=== PATIENT | female | born 1945 | race Caucasian/White ===

== ENCOUNTER 2024-04-23 09:13 | Outpatient (AMB) | payer OTHER, SELFPAY ==
--- NOTE | 2024-04-23 09:18 | A.OFFVIS_ITS ---
Vital Signs 04/23/24 09:33 Height 5 ft 5 in Weight 133 lb BMI 22.1 BP 113/62 Blood Pressure Location Rt brachial Position Sitting Pulse 80 Intake Visit Reasons: Breast Issues Intake Note: Patient is seen in office for evaluation and treatment of breast issues. Pt c/o: had rt br bx at [facility] in March. Diagnosed with breast CA. Scheduled today's appointment to talk about txt options. [employer] Supervisor Required: No Accompanied by: spouse Jaspal Allergies penicillin G Allergy (Mild, Verified 04/23/24 09:24) Rash Medication List - Last Reconciled 04/23/24 by Abdirashid Hudson MD amlodipine mg PO bupropion HCl XL 300 mg PO DAILY denosumab (Prolia) mg subcut lamotrigine 200 mg PO DAILY lisinopril 40 mg PO DAILY rosuvastatin 20 mg PO BEDTIME venlafaxine ER 75 mg PO DAILY HPI Comments Details: 78-year-old female patient presenting to the office following a recent ultrasound-guided core biopsy performed at [facility] on 03/31/2024. She underwent bilateral mammogram on 03/05/2024 followed by diagnostic right mammogram and ultrasound on 03/25/2024. This revealed a 0.6 cm round isodense nodule with partial obscured borders in the superior aspect of the right breast approximately 9 cm from the nipple, 11 o'clock position. This was felt to be suspicious and ultrasound-guided core biopsy recommended (BI-RADS 4). She subsequently underwent ultrasound-guided core biopsy on 03/31/2024. 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 She denies a previous history of breast problems or breast surgery. She denies any breast pain, palpable lump, nipple discharge, skin changes or enlarged lymph nodes. She is 0. Her family history is negative for breast cancer. She presents today to discuss surgical next steps. FOR[facility]LY [facility] Medical History Hammer toe of second toe of right foot Patella fracture Bipolar 1 disorder Surgical History H/O: hysterectomy Family History Father Multiple myeloma Social History Alcohol intake: current Alcohol type: wine Patient Tobacco Use Status: Never used Tobacco Review of Systems Const All systems reviewed & are unremarkable except as noted in HPI and below Denies chills, Denies fever(s), Denies headache(s), Denies poor appetite and Denies weakness ENT Denies headache(s) Card Denies chest pain, Denies irregular heart rhythm, Denies palpitations and Denies dyspnea Resp Denies cough, Denies excessive phlegm production and Denies dyspnea GI Denies abdominal pain, Denies bloating, Denies change in bowel habits, Denies constipation, Denies heartburn, Denies diarrhea, Denies nausea and Denies vomiting Denies urinary frequency and Denies nipple discharge Musc Denies back pain, Denies muscle weakness and Denies numbness Skin/Breast Denies breast skin changes, Denies breast pain, Denies breast mass, Denies changing lesions, Denies nipple discharge, Denies erythema and Denies unusual b ruising Neuro Denies headache(s), Denies numbness, Denies paresthesias and Denies weakness Psych Denies anxiety and Denies depression Endo Denies palpitations Cezar/Lymph Denies lymphadenopathy Physical Exam Vital Signs: Last Vital Signs Pulse 80 04/23/24 09:33 BP 113/62 04/23/24 09:33 BMI result Body Mass Index 22.1 Const General: cooperative and no acute distress Nutritional Appearance: well nourished Orientation/consciousness: patient oriented x3 Limitations: no limitations HEENT Head: Yes normocephalic and Yes atraumatic Ears: hearing grossly normal bilaterally Chest Other: Left breast: No skin change, no nipple retraction, no nipple discharge, no palpable mass, no enlarged lymph nodes. Right breast: No skin change, no nipple retraction, no nipple discharge, no palpable mass, no enlarged lymph nodes Resp Effort & Inspection: normal respiratory effort, no audible wheezes, no cough and no respiratory distress Cardio Jugular venous distension: no JVD GI Inspection: Yes normal to inspection Skin Other: Warm, dry, no rash Neuro General: patient oriented x3 Extrem General: Yes no clubbing, cyanosis or edema Assessment & Plan Assessment & Plan (1) Invasive ductal carcinoma of right breast: Code(s): C50.911 - Malignant neoplasm of unspecified site of right female breast Category: Medical (2) Ductal carcinoma in situ of right breast: Code(s): D05.11 - Intraductal carcinoma in situ of right breast Category: Medical Plan 78-year-old female patient presenting with a recently diagnosed invasive ductal carcinoma of the right breast, 11 o'clock position, 9 cm from the nipple with associated focal ductal carcinoma in-situ. I reviewed the pathology in detail with the patient and recommended a right breast lumpectomy with localizer and right axillary sentinel node biopsy. After discussion of the procedure, risks, and alternatives, she consents to the procedure and will be scheduled at her earliest convenience. Coding Level of Care Code New Pt Level 4 (19507) Diagnoses Invasive ductal carcinoma of right breast C50.911 Ductal carcinoma in situ of right breast D05.11
[2024-04-23 09:33] VITALS: BP 113/62; PULSE 80; BMI 22.1
== END 2024-04-23 09:56 | disposition home or self-care (01) ==
PROVIDERS: PCP Internal Medicine; Visit Provider Surgery
DX: C50.911 Malignant neoplasm of unspecified site of right female breast (principal); D05.11 Intraductal carcinoma in situ of right breast
CPT/HCPCS: 99204

== ENCOUNTER → 2024-04-23 09:13 | Outpatient (BNVA) | payer OTHER, SELFPAY | PROVIDERS: PCP Internal Medicine; Visit Provider Surgery ==

== ENCOUNTER 2024-05-05 09:45 | Outpatient (REF) | payer OTHER, SELFPAY ==
--- NOTE | ~2024-05-05 | US_ITS ---
EXAMINATION: MM ULTRASOUND GUIDED RFID LOCALIZATION BREAST, RIGHT POSTPROCEDURAL RIGHT BREAST DIAGNOSTIC MAMMOGRAM. CLINICAL INFORMATION: Right breast invasive ductal carcinoma 11:00 axis, 9 cm from the nipple. For RFID localization. COMPARISON: None TECHNIQUE NEEDLE LOC: Proper informed consent is obtained from the patient after discussion of the procedure, potential risks and complications, and alternatives including declining the procedure today. Patient was given an opportunity for questions. The patient appeared to understand. The patient consented to the procedure and signed the consent form. GUIDANCE: Ultrasound guidance. APPROACH: Lateral. TARGET: Small 5 mm oval mass with internal biopsy clip 11:00 axis right breast, 9 cm from the nipple. ANESTHESIA: carbonated lidocaine 1%: 2 mL. LOCALIZATION SYSTEM: [employer] LOCallizer Wire-Free Guidance System with 12g needle applicator. RADIOFREQUENCY TAG: ID # [id number] DERMATOTOMY: Single 1 mm skin-leslye dermatotomy performed. RF Tag ID confirmed with LOCalizer Guidance System prior to placement. The skin is prepped and local anesthesia administered. The needle is positioned and RFID tag deployed. Final mammographic CC and ML images demonstrate the LOCalizer RF tag to reside immediately abutting the biopsy clip and small mass. The patient tolerated the procedure well and had no immediate complications. Dressing placed and home instructions reviewed. US/US breast needle loc RT IMPRESSION: -Status post right breast ultrasound-guided RFID localization with mammographic confirmation images . -Please refer to the final CC and ML images for OR reference, which are appropriately labeled. Electronically signed by: Cole White MD 05/05/2024 01:15 PM EDT
--- NOTE | ~2024-05-05 | MM_ITS ---
EXAMINATION: MM ULTRASOUND GUIDED RFID LOCALIZATION BREAST, RIGHT POSTPROCEDURAL RIGHT BREAST DIAGNOSTIC MAMMOGRAM. CLINICAL INFORMATION: Right breast invasive ductal carcinoma 11:00 axis, 9 cm from the nipple. For RFID localization. COMPARISON: None TECHNIQUE NEEDLE LOC: Proper informed consent is obtained from the patient after discussion of the procedure, potential risks and complications, and alternatives including declining the procedure today. Patient was given an opportunity for questions. The patient appeared to understand. The patient consented to the procedure and signed the consent form. GUIDANCE: Ultrasound guidance. APPROACH: Lateral. TARGET: Small 5 mm oval mass with internal biopsy clip 11:00 axis right breast, 9 cm from the nipple. ANESTHESIA: carbonated lidocaine 1%: 2 mL. LOCALIZATION SYSTEM: [email or web address] LOCallizer Wire-Free Guidance System with 12g needle applicator. RADIOFREQUENCY TAG: ID # [id number] DERMATOTOMY: Single 1 mm skin-leslye dermatotomy performed. RF Tag ID confirmed with LOCalizer Guidance System prior to placement. The skin is prepped and local anesthesia administered. The needle is positioned and RFID tag deployed. Final mammographic CC and ML images demonstrate the LOCalizer RF tag to reside immediately abutting the biopsy clip and small mass. The patient tolerated the procedure well and had no immediate complications. Dressing placed and home instructions reviewed. MM/MM tomosynthesis diagnostic RT IMPRESSION: -Status post right breast ultrasound-guided RFID localization with mammographic confirmation images . -Please refer to the final CC and ML images for OR reference, which are appropriately labeled. Electronically signed by: Cole White MD 05/05/2024 01:15 PM EDT
[2024-05-05] MEDS: Sodium Bicarbonate 8.4% 50 MEQ/50 ML VIAL SUBCUT (10:56)
[2024-05-05] MEDS: Lidocaine HCl 1 % 20 ML VIAL 8 ML SUBCUT (10:58)
== END 2024-05-05 09:46 | disposition home or self-care (01) ==
LOC: HO.MAMMO 09:45
PROVIDERS: Visit Provider Surgery
DX: C50.411 Malignant neoplasm of upper-outer quadrant of right female breast (principal)
CPT/HCPCS: 19285; 77061; 77065; C1819

== ENCOUNTER → 2024-05-05 10:10 | Outpatient (BNV) | payer OTHER, SELFPAY | PROVIDERS: Visit Provider Radiology Diagnostic Radiology | DX: C50.511 Malignant neoplasm of lower-outer quadrant of right female breast (principal) | CPT/HCPCS: 19285; 77065 ==

== ENCOUNTER 2024-06-10 06:05 | Day surgery (SDC) | payer MEDICARE, SELFPAY ==
[2024-05-26 12:57] VITALS: BP 131/60; PULSE 84; RESP 20; O2SAT 95; BMI 21.6
--- NOTE | 2024-05-26 13:09 | P.CONAN_ITS ---
Documented by User: Coty Simpson NP 05/27/24 13:15 HPI - Anesthesia Eval Consult details Narrative: 78yo F for Right Breast Lumpectomy w/LOCalizer, [place] Node Biopsy Medically optimized per PCP No recent illness No CP/SOB with walking for exercise PMFSH Active Problems Active Problems: All Active Problems Ductal carcinoma in situ of right breast (Acute) Invasive ductal carcinoma of right breast (Acute) Past Medical History Medical History (Updated 05/26/24 @ 12:53 by Carol Eduardo RN) Basal cell carcinoma Arthritis HTN (hypertension) Osteoporosis Closed fracture of thoracic vertebra Chronic renal insufficiency Depression Hammer toe of second toe of right foot Patella fracture Bipolar 1 disorder Family History Family History Father Multiple myeloma Family history of problems with anesthesia: No Surgical History Surgical History (Updated 05/26/24 @ 12:54 by Carol Eduardo RN) H/O colonoscopy Hx of vertebroplasty History of rectal surgery Hx of foot surgery History of amputation of toe Hx of knee surgery H/O: hysterectomy History of Problems with Anesthesia: No Social History Social History Are you a primary direct care professional to a significant other at home: No Do you presently have visiting nurse or other home services: No Alcohol intake: current Alcohol type: wine Patient Tobacco Use Status: Former Tobacco user Tobacco use type: Cigarette Years Smoked: 57 Use of substances other than those prescribed or required for medical reasons: Yes Substance Use Type Other:: edibles Have you been hit, kicked, punched, or otherwise hurt by someone within the past year? If so, by whom?: No Spiritual Healthcare Practices: none Pent[employer]ism Healthcare Practices: [facility] [place] Cultural Healthcare Practices: none Are you DNR?: No Advance Directives Information Provided: Yes (as above noted) Advance Directives on File: No Recently lost weight without trying: No Eating poorly because of decreased appetite: No Nutrition Risks: Surgical patient >75years FDLMP: n/a Poor oral hygiene: No (upper partial) Meds Allergies Allergy/AdvReac Type Severity Reaction Status Date / Time penicillin G Allergy Mild Rash Verified 04/23/24 09:24 Home Medications ?Medication ?Instructions ?Recorded ?Confirmed ?Last Taken ?Type amlodipine 5 mg tablet 5 mg PO QAM 04/23/24 05/26/24 06/10/24 History bupropion HCl 300 mg 24 hr tablet, 300 mg PO BEDTIME 04/23/24 05/26/24 Unknown History extended release denosumab 60 mg/mL subcutaneous 60 mg subcut [id number] 04/23/24 05/26/24 Unknown History syringe (Prolia) lamotrigine 200 mg tablet 200 mg PO QAM 04/23/24 05/26/24 06/10/24 History lisinopril 40 mg tablet 40 mg PO QAM 04/23/24 05/26/24 Unknown History rosuvastatin 20 mg tablet 20 mg PO BEDTIME 04/23/24 05/26/24 Unknown History venlafaxine 75 mg capsule,extended 75 mg PO BEDTIME 04/23/24 05/26/24 Unknown History release 24 hr aspirin 81 mg tablet,delayed 81 mg PO DAILY 06/10/24 06/10/24 06/07/24 History release Exam Height,Weight and Vital Signs: Height 5 ft 5 in Weight 58.967 kg Last Vital Signs Pulse 84 05/26/24 12:57 Resp 20 05/26/24 12:57 BP 131/60 05/26/24 12:57 Pulse Ox 95 05/26/24 12:57 O2 Del Method Room Air 05/26/24 12:57 Pertinent Lab Results Pertinent Lab Results: CBC and CMP 04/2024 from outside facility WNL Airway Mallampati Class: II TM Dist: <=3cm Neck ROM: Full Partial: Upper Heart: RRR Lungs: CTAB Assessment and Plan Assessment Anesthesia Assessment: Anesthesia Plan Discussed and PAT Visit Final Anesthetic Review Family History of Problems with Anesthesia: No History of Problems with Anesthesia: No Final Preanesthetic Review: No Changes in Pt Med Stat Documented by User: Silvia Ghosh MD 06/10/24 10:25 [facility] Past Medical History Medical History (Updated 05/26/24 @ 12:53 by Carol Eduardo RN) Basal cell carcinoma Arthritis HTN (hypertension) Osteoporosis Closed fracture of thoracic vertebra Chronic renal insufficiency Depression Hammer toe of second toe of right foot Patella fracture Bipolar 1 disorder Family History Family History Father Multiple myeloma Surgical History Surgical History (Updated 05/26/24 @ 12:54 by Carol Eduardo RN) H/O colonoscopy Hx of vertebroplasty History of rectal surgery Hx of foot surgery History of amputation of toe Hx of knee surgery H/O: hysterectomy Social History Social History Are you a primary direct care professional to a significant other at home: No Do you presently have visiting nurse or other home services: No Alcohol intake: current Alcohol type: wine Patient Tobacco Use Status: Former Tobacco user Tobacco use type: Cigarette Years Smoked: 57 Use of substances other than those prescribed or required for medical reasons: Yes Substance Use Type Other:: edibles Have you been hit, kicked, punched, or otherwise hurt by someone within the past year? If so, by whom?: No Spiritual Healthcare Practices: none Pent[employer]alism Healthcare Practices: [facility] Cultural Healthcare Practices: none Are you DNR?: No Advance Directives Information Provided: Yes (as above noted) Advance Directives on File: No Recently lost weight without trying: No Eating poorly because of decreased appetite: No Nutrition Risks: Surgical patient >75years FDLMP: n/a Poor oral hygiene: No (upper partial) Meds Allergies Allergy/AdvReac Type Severity Reaction Status Date / Time penicillin G Allergy Mild Rash Verified 04/23/24 09:24 Home Medications ?Medication ?Instructions ?Recorded ?Confirmed ?Last Taken ?Type amlodipine 5 mg tablet 5 mg PO QAM 04/23/24 05/26/24 06/10/24 History bupropion HCl 300 mg 24 hr tablet, 300 mg PO BEDTIME 04/23/24 05/26/24 Unknown History extended release denosumab 60 mg/mL subcutaneous 60 mg subcut [id number] 04/23/24 05/26/24 Unknown History syringe (Prolia) lamotrigine 200 mg tablet 200 mg PO QAM 04/23/24 05/26/24 06/10/24 History lisinopril 40 mg tablet 40 mg PO QAM 04/23/24 05/26/24 Unknown History rosuvastatin 20 mg tablet 20 mg PO BEDTIME 04/23/24 05/26/24 Unknown History venlafaxine 75 mg capsule,extended 75 mg PO BEDTIME 04/23/24 05/26/24 Unknown History release 24 hr aspirin 81 mg tablet,delayed 81 mg PO DAILY 06/10/24 06/10/24 06/07/24 History release Assessment and Plan Final Anesthetic Review NPO: Yes ASA Class: II Final Preanesthetic Review: Meds/Allgs Chart Reviewed and Consent Obtained/Reviewed Patient Risk: Low Procedure Risk: Low Anesthetic Plan Anesthetic Plan: GA Disposition: Standard PACU
[2024-06-10] VITALS (14 sets, daily range): BP systolic 119–139; BP diastolic 62–74; PULSE 77–86; RESP 11–20; TEMP 37.1–37.2; O2SAT 92–95; BMI 20.8
--- NOTE | ~2024-06-10 | NM_ITS ---
EXAMINATION: NM LYMPHOSCINTIGRAPHY CLINICAL INFORMATION: Right breast invasive ductal carcinoma 11:00 axis, 9 cm from the nipple. For sentinel node. COMPARISON: 05/05/2024 mammography and right breast needle localization. Right breast biopsy 03/31/2024 ([facility]), bilateral mammography 03/05/2024, right diagnostic mammography and ultrasound 03/25/2024 ([facility]). TECHNIQUE: Right breast lymphoscintigraphy injection was performed . Approximately 0.5 mCi of technetium 99m lymphoseek and 0.8 mL of saline was divided into 4 aliquots of approximately 0.125 mCi, and injected in 4 quadrants around the right breast areola intradermally at 12:00, 3:00, 6:00, and 9:00. Immediate images and delayed images were obtained in AP, oblique and lateral views 30 minutes later. FINDINGS: There is isotope activity in four-quadrant around right breast areola immediately following injection. At 30 minute images, are at least 3 areas , and likely more small foci of isotope activity along the right mid axilla extending into the right subpectoral region, suggestive of multiple lymph nodes. NM/NM sentinel node w imaging IMPRESSION: At least 3 small lymph nodes seen in right axilla and subpectoral region on right breast lymphoscintigraphy. Thank you for the courtesy of your referral. Electronically signed by: Cole White MD 06/10/2024 12:30 PM EDT
--- NOTE | ~2024-06-10 | MM_ITS ---
EXAMINATION: MM SPECIMEN X-RAY BREAST, RIGHT BREAST CLINICAL INDICATION: Right breast invasive ductal carcinoma 11:00 axis, 9 cm from the nipple. COMPARISON: 05/05/2024 mammography and right breast needle localization. Right breast biopsy 03/31/2024 ([facility]), bilateral mammography 03/05/2024, right diagnostic mammography and ultrasound 03/25/2024 ([facility]). TECHNIQUE: Single radiograph of the excised breast tissue is performed using digital mammography. FINDINGS: The specimen shows the waning shaped biopsy clip, RF ID tags, and a portion of the irregular mass contained within the specimen. The mass appears to extend to the superior margin of the specimen. Dr. Hudson made aware, who is taking additional tissue from the superior aspect. Results were called to in the operating room at the time of imaging. Electronically signed by: Cole White MD 06/10/2024 05:48 PM EDT
[2024-06-10] MEDS: Lidocaine HCl 4 % Topical 50 ML SOLUTION 1 APPL TOPICAL (06:45)
[2024-06-10] MEDS: Lactated Ringers 1,000 ML 100 ML IVCONT (06:54)
--- NOTE | 2024-06-10 10:13 | MHC.SHP ---
Pre-Procedural Eval Section A - 24 Hr Update-Section A only Date of Service: 06/10/24 The patient is an INPATIENT: No Changes since office visit: Yes Patient answered all questions; No Cold of Flu in the past 2 weeks, No New Medical Problems and No Changes in Medication The patient has been examined within 24 hours of the surgical procedure. The History & Physical has been completed within 30 days and I have reviewed it.: No Section B - Complete if H&P > 30 days Chief Complaint: Intraductal carcinoma in situ of right breast Details of Present Illness: No changes since the patient's previous visit. Relevant Family History (Specify if Yes): No Relevant Social History: None Present Medications: see Short Stay Collaborative assessment Medical History: No relevant PMH History of Previous Operations: No relevant previous surgery Allergies: Allergies Allergy/AdvReac Type Severity Reaction Status Date / Time penicillin G Allergy Mild Rash Verified 04/23/24 09:24 Review of Systems Sugical H&P ROS: Negative: Constitution, Cardiovascular, Respiratory, Gastrointestinal and Integumentary Exam Surgical H&P Exam: Normal: Heart, Normal: Lungs, Normal: Extremities and Normal: Skin Plan Diagnosis/Plan: Unchanged I have reviewed the history and physical and performed a pertinent physical examination on my patient. No changes have occurred unless specified. Time Spent With Patient Time: Total time managing care of this patient today ____ minutes.
--- NOTE | 2024-06-10 11:58 | W.PM.OPN ---
Operative Note Operative Note Date of Service: 06/10/24 Narrative: Preoperative diagnosis: Invasive ductal carcinoma right breast Postoperative diagnosis: Same Procedure: Right breast lumpectomy with localizer, right axillary sentinel node biopsy Surgeon: Abdirashid Hudson MD [employer] Teacher: Monique Barriga PA-C Anesthesia: General LMA Indications for procedure: 78-year-old female patient found to have a density on mammogram and ultrasound status post ultrasound-guided core biopsy which revealed invasive ductal carcinoma. She presents today for lumpectomy with localizer and right axillary sentinel node biopsy. Operative findings: Marking clip and localizer found within specimen x-ray. Specimen: Right breast lumpectomy, anterior superior margin, sentinel node 1, 2, and 3 Estimated blood loss: 5 mL Complications: None Procedure details: Patient was brought to the OR placed in a supine position. After administering general anesthesia the patient's right breast and axilla were prepped with ChloraPrep and draped in a sterile fashion. A surgical time-out was called the consent confirmed. Patient received preoperative antibiotics and Venodyne boots were in place. Local anesthesia was infiltrated over the localizer clip in the upper outer quadrant. Using the localizer scanner the area of activity was identified. A curvilinear incision was made directly over the clip. Superior and inferior skin flaps were then created. A core of tissue surrounding the localizing clip was then obtained. Beginning in the inferior margin and continuing in the lateral, superior and medial margins. The specimen was then dissected off the chest wall down to pectoralis muscle. Hemostasis was assured using electrocautery. Cavity of the excision site was marked with hemoclips. Specimen was removed and a specimen x-ray performed. This confirmed the marking clip and localizer clip within the specimen. This was sent to pathology for further examination. The superior anterior margin was determined to be closed therefore a wider excision was performed of this margin. This was also sent to pathology for further examination. Attention was then directed to the axilla which was approached through the same incision. Using the gamma probe area of activity was identified in the superficial axilla. This was grasped with a Allis clamp and dissected free from the surrounding axillary tissue. This had a proximally 1200 counts and was labeled sentinel node 1. Additional nodes were identified with radio activity and were sent separately as sentinel node 2. And 3. No additional axillary nodes were identified the radio activity. No palpable axillary nodes were identified. Wounds were then irrigated with saline and suctioned dry. Hemostasis was assured using electrocautery. Deep breast tissue and clavipectoral fascia was then closed using interrupted 3-0 Polysorb sutures. Superficial breast tissue and dermis were reapproximated using interrupted 3-0 Polysorb sutures. Skin was then closed using a running subcuticular 4-0 Polysorb suture. Steri-Strips, 4 x 4 gauze and Tegaderm were then applied. The patient tolerated the procedure well. Sponge, instrument, and needle counts were reported as correct. The patient was transferred to PACU in stable condition. Breast [place] Node Biopsy Substrate(s) used for sentinel node biopsy in the non-neoadjuvant setting: Radiotracer Substrate(s) used for sentinel node biopsy in the neoadjuvant setting: N/A All colored nodes or non-colored nodes present at the end of a dye filled lymphatic channel were removed, if dye was used as the substrate for localization: N/A All significantly radioactive nodes were removed, if radionuclide was used as the substrate for localization: Yes All palpably suspicious nodes were removed, if present: Yes If clips were placed in pathology-involved nodes, those nodes were identified and removed: N/A Procedure performed with curative intent?: Yes General Surg. - Synoptic Notes Breast [place] Node Biopsy Substrate(s) used for sentinel node biopsy in the non-neoadjuvant setting: Radiotracer Substrate(s) used for sentinel node biopsy in the neoadjuvant setting: N/A All colored nodes or non-colored nodes present at the end of a dye filled lymphatic channel were removed, if dye was used as the substrate for localization: N/A All significantly radioactive nodes were removed, if radionuclide was used as the substrate for localization: Yes All palpably suspicious nodes were removed, if present: Yes If clips were placed in pathology-involved nodes, those nodes were identified and removed: N/A Procedure performed with curative intent?: Yes
[2024-06-10] MEDS: fentaNYL citrate/PF 100 MCG/2 ML VIAL 25 MCG IVPUSH ×4 (12:58→13:21)
[2024-06-10] MEDS: Acetaminophen 325 MG TABLET 650 MG PO (13:53)
[2024-06-10] MEDS: oxyCODONE HCl Immed Release 5 MG TABLET PO (13:54)
== END 2024-06-10 14:37 | disposition home or self-care (01) ==
PROVIDERS: Visit Provider Surgery
PROC: (CPT 19301; principal; 2024-06-10 10:30)
PROC: (CPT 19301; 2024-06-10 10:30)
DX: C50.411 Malignant neoplasm of upper-outer quadrant of right female breast (principal); Z17.0 Estrogen receptor positive status [ER+]; Z17.21 Progesterone receptor positive status; Z17.32 Human epidermal growth factor receptor 2 negative status; I12.9 Hypertensive chronic kidney disease with stage 1 through stage 4 chronic kidney disease, or unspecified chronic kidney disease; N18.2 Chronic kidney disease, stage 2 (mild); E78.2 Mixed hyperlipidemia; E55.9 Vitamin D deficiency, unspecified; M81.0 Age-related osteoporosis without current pathological fracture; F31.9 Bipolar disorder, unspecified; Z79.52 Long term (current) use of systemic steroids; Z79.899 Other long term (current) drug therapy; Z88.0 Allergy status to penicillin; Z98.890 Other specified postprocedural states; Z87.891 Personal history of nicotine dependence; Z89.422 Acquired absence of other left toe(s)
CPT/HCPCS: 19301; 38525; 38900; 78195; 88307; 88329; 88342; 88360; A9520; C1889; J1100; J2003; J2250; J2405; J2704; J2795; J3010; J3370

== ENCOUNTER → 2024-06-10 06:05 | Outpatient (BNV) | payer MEDICARE, SELFPAY | PROVIDERS: Visit Provider Surgery | DX: C50.411 Malignant neoplasm of upper-outer quadrant of right female breast (principal) | CPT/HCPCS: 19301; 38525; 38900 ==

== ENCOUNTER → 2024-06-10 07:46 | Outpatient (BNV) | payer MEDICARE, SELFPAY | PROVIDERS: Visit Provider Radiology Diagnostic Radiology | DX: C50.911 Malignant neoplasm of unspecified site of right female breast (principal) | CPT/HCPCS: 78195 ==

== ENCOUNTER 2024-06-19 11:15 | Outpatient (AMB) | payer OTHER, SELFPAY ==
--- NOTE | 2024-06-19 11:17 | MHC.OFFVIS ---
Vital Signs 06/19/24 11:22 Height 5 ft 5 in Weight 124 lb 12.506 oz BMI 20.8 Respiration 16 Pulse 80 Intake Visit Reasons: S/P Rt brst lumpectomy w/localizer & Rt SN bx Intake Note: Patient is seen in office for post op assessment post Right breast lumpectomy with localizer, right axillary sentinel node biopsy. 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 on 03/31/2024. She underwent bilateral mammogram on 03/05/2024 followed by diagnostic right mammogram and ultrasound on 03/25/2024. This revealed a 0.6 cm round isodense nodule with partial obscured borders in the superior aspect of the right breast approximately 9 cm from the nipple, 11 o'clock position. This was felt to be suspicious and ultrasound-guided core biopsy recommended (BI-RADS 4). She subsequently underwent ultrasound-guided core biopsy on 03/31/2024. 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 She denies a previous history of breast problems or breast surgery. She denies any breast pain, palpable lump, nipple discharge, skin changes or enlarged lymph nodes. She is 0. Her family history is negative for breast cancer. She presents today to discuss surgical next steps. She underwent right breast lumpectomy with localizer and right axillary sentinel node biopsy on 06/10/2024. Pathology confirmed invasive ductal carcinoma with DCIS, negative margins, 0 of 6 sentinel lymph nodes with metastatic disease, ER/TX positive, HER2 Chelsy negative, Ki-67 high (pT1b pN0). She tolerated the procedure well but does have some soreness in the right axilla. [facility] Medical History Basal cell carcinoma Arthritis HTN (hypertension) Osteoporosis Closed fracture of thoracic vertebra Chronic renal insufficiency Depression Hammer toe of second toe of right foot Patella fracture Bipolar 1 disorder Surgical History Status post right breast lumpectomy (06/10/24) H/O colonoscopy Hx of vertebroplasty History of rectal surgery Hx of foot surgery History of amputation of toe Hx of knee surgery H/O: hysterectomy Family History Father Multiple myeloma Social History Are you a primary physician locums urgent care to a significant other at home: No Do you presently have visiting nurse or other home services: No Alcohol intake: current Alcohol type: wine Patient Tobacco Use Status: Former Tobacco user Tobacco use type: Cigarette Years Smoked: 57 Physical Exam Vital Signs: Last Vital Signs Pulse 80 06/19/24 11:22 Resp 16 06/19/24 11:22 BMI result Body Mass Index 20.8 Const General: no acute distress Nutritional Appearance: well nourished Chest Other: Incision in the upper outer quadrant right breast is clean, dry, and intact with intact Steri-Strips. There is a small underlying hematoma but no erythema. Wounds are healing nicely. Resp Effort & Inspection: normal respiratory effort Skin Other: Warm, dry, no rash Assessment & Plan Assessment & Plan (1) Invasive ductal carcinoma of right breast: Code(s): C50.911 - Malignant neoplasm of unspecified site of right female breast Category: Medical (2) Ductal carcinoma in situ of right breast: Code(s): D05.11 - Intraductal carcinoma in situ of right breast Category: Medical Plan 78-year-old female patient status post right breast lumpectomy with sentinel node biopsy for invasive ductal carcinoma with DCIS. I reviewed the pathology in detail with the patient and her . I recommended further evaluation by Medical Oncology. Patient expressed understanding and agrees with the plan. She will follow-up in 1 month for wound check, sooner p.r.n.. Orders: Referrals Hematology & Oncology Referral C50.911 - Malignant neoplasm of unspecified site of right female breast, D05.11 - Intraductal carcinoma in situ of right breast Coding Level of Care Code Global (53012) Diagnoses Invasive ductal carcinoma of right breast C50.911 Ductal carcinoma in situ of right breast D05.11
[2024-06-19 11:22] VITALS: PULSE 80; RESP 16; BMI 20.8
== END 2024-06-19 11:32 | disposition home or self-care (01) ==
PROVIDERS: PCP Internal Medicine; Visit Provider Surgery
DX: C50.911 Malignant neoplasm of unspecified site of right female breast (principal); D05.11 Intraductal carcinoma in situ of right breast
CPT/HCPCS: 99024

== ENCOUNTER → 2024-06-19 11:15 | Outpatient (BNVA) | payer OTHER, SELFPAY | PROVIDERS: PCP Internal Medicine; Visit Provider Surgery ==

== ENCOUNTER → 2024-06-30 13:00 | Outpatient (BNV) | payer OTHER, SELFPAY | PROVIDERS: PCP Internal Medicine; Referring Provider Surgery; Visit Provider Internal Medicine Medical Oncology | DX: D05.11 Intraductal carcinoma in situ of right breast (principal) | CPT/HCPCS: 99204; 99213 ==

== ENCOUNTER 2024-07-06 10:31 | Outpatient (REF) | payer OTHER, SELFPAY ==
--- NOTE | ~2024-07-06 | MM_ITS ---
EXAMINATION: BONE DENSITOMETRY CLINICAL INDICATION: History of osteopenia/osteoporosis. COMPARISON: This is the patient's baseline examination. TECHNIQUE: Using a [employer] DXA System (software version: 13.1) manufactured by [employer], dual-energy x-ray absorptiometry was performed of the lumbar spine and left hip. The images are of good technical quality. Summary results are attached. FINDINGS: LEFT FEMUR, NECK: BMD 0.754 g/cm2, Z-score 0.3, T-score -2.0, osteopenia. LEFT FEMUR, TOTAL: BMD 0.845 g/cm2, Z-score 1.0, T-score -1.3, osteopenia. AP SPINE L1-L2 (excluding L3 and L4): The data of L1-L4 has been changed to exclude the L3 and L4 vertebral bodies, because significant degenerative change at these levels may cause overestimation of lumbar spine density. BMD 0.881 g/cm2, Z-score -0.2, T-score -2.4, osteopenia. IDENTIFIED RISK FACTORS: Menopause, hysterectomy, bilateral oophorectomy, history of fracture (adult), osteoporosis. HISTORY OF FRACTURE: Other. MEDICATIONS: Calcium supplements or multivitamin, vitamin D, Prolia. MM/XR DEXA axial skeleton IMPRESSION: 1. DIAGNOSIS: Osteopenia based on the lowest T-score value of -2.4 in the lumbar spine applying World Health Organization criteria. 2. 10-YEAR FRACTURE RISK PREDICTION, FRAX: Not performed in this patient on estrogen or bone building treatments. 3. Treatment Recommendations: NOF guidelines recommend consideration for treatment in postmenopausal women and men age 50 and older presenting with the following: -A hip or vertebral (clinical or morphometric) fracture. -T-score less than or equal to -2.5 at the femoral neck or spine after appropriate evaluation to exclude secondary causes. -Low bone mass at the hip or spine and a 10-year fracture probability by FRAX of greater than or equal to 3% for hip fracture or greater than or equal to 20% for major osteoporotic fracture based on the [place] adapted WHO algorithm. 4. Other Recommendations: All treatment decisions require clinical judgment and consideration of individual patient factors, including patient preferences, comorbidities, previous drug use, risk factors not captured in the FRAX model (e.g. frailty, falls, vitamin D deficiency, increased bone turnover, interval significant decline in bone density) and possible under or overestimation of fracture risk by FRAX. Additional medical evaluation for secondary cause of low bone mineral density may be appropriate. FUTURE SCAN RECOMMENDATION: People with diagnosed cases of osteoporosis or at high risk for fracture should have regular bone mineral density tests. For patients eligible for Medicare, routine testing is allowed once every 2 years. The testing frequency can be increased to one year for patients who have rapidly progressing disease, those who are receiving or discontinuing medical therapy to restore bone mass, or have additional risk factors. Electronically signed by: Karen Hutchinson MD 07/06/2024 12:02 PM ROBBIE RED
== END 2024-07-06 10:32 | disposition home or self-care (01) ==
LOC: HO.MAMMO 10:31
PROVIDERS: PCP Internal Medicine; Visit Provider Internal Medicine Medical Oncology
DX: M81.0 Age-related osteoporosis without current pathological fracture (principal)
CPT/HCPCS: 77080

== ENCOUNTER 2024-07-31 09:36 | Outpatient (AMB) | payer OTHER, SELFPAY ==
--- NOTE | 2024-07-31 09:38 | A.OFFVIS_ITS ---
Vital Signs 3 07/31/24 09:46 Height 5 ft 5 in Weight 123 lb BMI 20.5 BP 156/67 H Blood Pressure Location Lt brachial Position Sitting Pulse 71 Intake Visit Reasons: S/P Rt brst lumpectomy w/localizer & Rt SN bx Intake Note: Patient is seen in office for one month follow up visit, post right breast lumpectomy. Pt c/o:denies any concerns regarding the breast, was Rx Anastrozole has not started taking it yet Yony:07/14/24 mm:05/05/24 Contact Lens Assistant Required: No Welt Stitch Cleaner: Welt Stitch Cleaner Present Accompanied by: Sponsored Dependent Allergies penicillin G Allergy (Mild, Verified 07/31/24 09:46) Rash Medication List - Last Reconciled 07/31/24 by Abdirashid Hudson MD amlodipine 5 mg PO QAM anastrozole (Arimidex) 1 mg PO DAILY aspirin 81 mg PO DAILY bupropion HCl XL 300 mg PO BEDTIME denosumab (Prolia) 60 mg subcut [id number] lamotrigine 200 mg PO QAM lisinopril 40 mg PO QAM rosuvastatin 20 mg PO BEDTIME venlafaxine ER 75 mg PO BEDTIME HPI Comments Details: 78-year-old female patient presenting to the office following a recent ultrasound-guided core biopsy performed at [facility] on 03/31/2024. She underwent bilateral mammogram on 03/05/2024 followed by diagnostic right mammogram and ultrasound on 03/25/2024. This revealed a 0.6 cm round isodense nodule with partial obscured borders in the superior aspect of the right breast approximately 9 cm from the nipple, 11 o'clock position. This was felt to be suspicious and ultrasound-guided core biopsy recommended (BI-RADS 4). She subsequently underwent ultrasound-guided core biopsy on 03/31/2024. 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 She denies a previous history of breast problems or breast surgery. She denies any breast pain, palpable lump, nipple discharge, skin changes or enlarged lymph nodes. She is 0. Her family history is negative for breast cancer. She presents today to discuss surgical next steps. She underwent right breast lumpectomy with localizer and right axillary sentinel node biopsy on 06/10/2024. Pathology confirmed invasive ductal carcinoma with DCIS, negative margins, 0 of 6 sentinel lymph nodes with metastatic disease, ER/MT positive, HER2 Chelsy negative, Ki-67 high (pT1b pN0). She was evaluated by Dr. Bhakta and the decision made to avoid radiation therapy given her age. She was started on anastrozole but has not started medication yet due to her being involved with a Ludi for approximately 2 weeks after which she would start the medication. She feels well and denies any ongoing pain at her incisions. [facility] Medical History Basal cell carcinoma Arthritis HTN (hypertension) Osteoporosis Closed fracture of thoracic vertebra Chronic renal insufficiency Depression Hammer toe of second toe of right foot Patella fracture Bipolar 1 disorder Surgical History Status post right breast lumpectomy (06/10/24) H/O colonoscopy Hx of vertebroplasty History of rectal surgery Hx of foot surgery History of amputation of toe Hx of knee surgery H/O: hysterectomy Family History Father Multiple myeloma Social History Household Members: Spouse Are you a primary resident care aid to a significant other at home: No Do you presently have visiting nurse or other home services: No Alcohol intake: current Alcohol type: wine Patient Tobacco Use Status: Former Tobacco user Tobacco use type: Cigarette Years Smoked: 57 Substance Use Type: Marijuana service: No Current occupational status: retired Review of Systems Const All systems reviewed & are unremarkable except as noted in HPI and below Physical Exam Vital Signs: Last Vital Signs Pulse 71 07/31/24 09:46 BP 156/67 H 07/31/24 09:46 BMI result Body Mass Index 20.5 Const General: no acute distress Nutritional Appearance: well nourished Chest Other: Incision in the upper outer quadrant right breast is clean, dry, and intact without seroma or hematoma. No palpable masses are noted surrounding the wound. No enlarged lymph nodes are appreciated. Chest/axillae images: 2 1. Resp Effort & Inspection: normal respiratory effort Skin Other: Warm, dry, no rash Neuro Other: Mobility Assessment 1. 3 meter assessment time (seconds) 6 2. Gait observations: Normal balance and gait Assessment & Plan Assessment & Plan (1) Invasive ductal carcinoma of right breast: Code(s): C50.911 - Malignant neoplasm of unspecified site of right female breast Category: Medical (2) Ductal carcinoma in situ of right breast: Code(s): D05.11 - Intraductal carcinoma in situ of right breast Category: Medical Plan 78-year-old female patient status post right breast lumpectomy with sentinel node biopsy for invasive ductal carcinoma with DCIS. She has been evaluated by Medical Oncology and started on anastrozole. Examination today reveals no evidence of recurrent disease. Her wounds are healing nicely. I recommended follow-up examination in approximately 6 months. She is welcome to call sooner for any new concerns. She will continue her follow-up with Dr. Bhakta in Medical Oncology. Coding Level of Care Code Global (02148) Diagnoses Invasive ductal carcinoma of right breast C50.911 Ductal carcinoma in situ of right breast D05.11
[2024-07-31 09:46] VITALS: BP 156/67; PULSE 71; BMI 20.5
--- OUTSIDE RECORDS SUMMARY | 2024-08-05 07:03 | XMS_ITS ---
Author Organization Shani Chapman MD Address [address] [id number] Care Team Providers Care Dealer Support Technician Name Role Phone Shani Chapman Primary Care Provider Pari Martinez Unavailable [phone] Allergies Allergen (clinical drug ingredient) Drug/Non Drug Allergy documented on EMR Reaction Allergy Type Onset Date Status penicillin G Penicillin G Sodium rash Drug Allergy Active REASON FOR VISIT AWV Medications Medication SIG (Take, Route, Frequency, Duration) Notes Start Date End Date Status Venlafaxine HCl ER 75 MG TAKE 1 CAPSULE BY MOUTH EVERY DAY WITH FOOD for 30 Activ e amLODIPine Besylate 5 MG TAKE 1 AND 1/2 TABLETS BY MOUTH EVERY DAY for 90 Active buPROPion HCl ER (XL) 300 MG TAKE 1 TABLET BY MOUTH EVERY DAY THE MORNING Orally Once a day for 90 days Active lamoTRIgine 200 MG TAKE 1 TABLET BY GIRISH TH DAILY for 90 Active Lisinopril 40 MG TAKE 1 TABLET BY GIRISH TH ONCE DAILY for 100 Active Rosuvastatin Calcium 20 MG TAKE 1 TABLET BY MOUTH ONCE DAILY for 100 Active Prolia 60 MG/ML 60 mg Subcutaneous E very 26 weeks 05/01/2022 Active Senokot 8.6 MG 2 tablets at bedtime as needed Orally Once a day for 30 day(s) Active Aspirin 81 MG 1 tablet Orally Once a day Active Social History Tobacco Use: Social History Observation Description Date Details (start date - stop date) Former Smoker NA - 11/25/2019 AUDIT-C (Standard) Question Answer Notes Did you have a drink contain ing alcohol in the past year? Yes How often did you have six o r more drinks on one occasion in the past year? Never (0 point) How many drinks did you have on a typical day when you were drinking in the past year? 1 or 2 drinks (0 point) How often did you have a dri nk containing alcohol in the past year? Daily or almost daily (4 points) Points 4 Interpretation Positive Tobacco Control (Standard) Question Answer Notes Tobacco use: Former smoker When did you stop smoking? 11/25/2019 How long has it been since you last smoked? 1-5 years Vital Signs Temperature 96.7 degrees Fahrenheit 07/09/20 24 Heart Rate 82 /min 07/09/2024 Blood pressure systolic 128 mm Hg 07/09/20 24 Blood pressure diastolic 76 mm Hg 024 Weight 129 lbs 07/09/2024 BMI 22.14 kg/m2 07/09/2024 Height 5 ft 4 in in 07/09/2024 Oximetry 98 % 07/09/2024 Encounters Encounter Location Date Provider Diagnosis Shani Chapman MD [address] [id number] 07/09/2024 Pari Martinez Encounter for genera l adult medical examination without abnormal findings Z00.00 ; Hypertensive chronic kidney disease with stage 1 through stage 4 chronic kidney disease, or unspecified chronic kidney disease I12.9 ; Chronic kidney disease, stage 2 (mild) N18.2 ; Mixed hyperlipidemia E78.2 ; Major depressive disorder, recurrent, in partial remission F33.41 ; Malignant neoplasm of unspecified site of unspecified female breast C50.919 ; Age-related osteoporosis without current pathological fracture M81.0 ; Nicotine dependence, cigarettes, in remission F17.211 ; Vitamin D deficiency, unspecified E55.9 ; Encounter for screening for malignant neoplasm of colon Z12.11 ; Encounter for screening mammogram for malignant neoplasm of breast Z12.31 ; Encounter for screening for osteoporosis Z13.820 ; Asymptomatic menopausal state Z78.0 ; Encounter for screening for cardiovascular disorders Z13.6 ; Encounter for immunization Z23 ; Encounter for antibody response examination Z01.84 ; Encounter for screening for other viral diseases Z11.59 and Encounter for screening examination for other mental health and behavioral disorders Z13.39 Assessments Encounter Date Diagnosis (ICD Code) Assessment Notes Treatment Notes Treatment Clinical Notes Section Notes 07/09/2024 Encounter for general adult medical examination without abnormal findings (ICD-10 - Z00.00) General healthcare up-to-date. Will obtain updated routine labs. Healthcare proxy and MOLST form package given for review and completion. Plan will be for annual in 1 year 07/09/2024 Hypertensive chronic kidney disease with stage 1 through stage 4 chronic kidney disease, or unspecified chronic kidney disease (ICD-10 - I12.9) Blood pressure stabl e during today's visit. Patient to remain on current medication regimen 07/09/2024 Chronic kidney disease, stage 2 (mild) (ICD-10 - N18.2) Stable with estimate d GFR in the upper 70s. Continue control of comorbidity of hypertension 07/09/2024 Mixed hyperlipidemia (ICD-10 - E78.2) Will obtain an updated lipid panel to verify by adequate LDL control. Patient to remain on current medication regimen and control of comorbidities of hypertension 07/09/2024 Major depressive disorder, recurrent, in partial remission (ICD-10 - F33.41) Stable at present time and patient to continue working with her behavioral health prescriber as well as continue current medication regimen as prescribed by this provider 07/09/2024 Malignant neoplasm of unspecified site of unspecified female breast (ICD-10 - C50.919) Patient is scheduled to be seen by her breast specialist/oncologist next week to review recent right breast lumpectomy and sentinel node dissection as well as discussed treatment options. 07/09/2024 Age-related osteoporosis without current pathological fracture (ICD-10 - M81.0) Patient recently completed an upper updated DEXA scan which did reveal improvement in bone density and she is now noted to have osteopenia. Patient states she is going to discuss this with her oncologist to determine appropriate treatments, if needed, now that her bone health has improved due to Prolia 07/09/2024 Nicotine dependence, cigarettes, in remission (ICD-10 - F17.211) Remains in remission 07/09/2024 Vitamin D deficiency, unspecified (ICD-10 - E55.9) Will check level as adjunct evaluation for fall risk and possibly dementia 07/09/2024 Encounter for screening for malignant neoplasm of colon (ICD-10 - Z12.11) Up-to-date on colon cancer screenings. Patient states she was advised by her form raiser that she no longer has to complete any further colonoscopies. Last colonoscopy was without significant findings and patient aware that should she have any bowel changes to follow-up with the office independent of her being 78 years old 07/09/2024 Encounter for screening mammogram for malignant neoplasm of breast (ICD-10 - Z12.31) Patient is followed by her breast specialist and oncologist and is up-to-date with breast cancer screenings 07/09/2024 Encounter for screening for osteoporosis (ICD-10 - Z13.820) Up-to-date on osteoporosis screening 07/09/2024 Asymptomatic menopausal state (ICD-10 - Z78.0) See plan above 07/09/2024 Encounter for screening for cardiovascular disorders (ICD-10 - Z13.6) Blood pressure stable. Will check for comorbidity of hyperlipidemia and hyperglycemia and use this data to further assess risk 07/09/2024 Encounter for immunization (ICD-10 - Z23) Vaccines up-to-date 07/09/2024 Encounter for antibody response examination (ICD-10 - Z01.84) Titers have been checked in the past and is immune to rubeola 07/09/2024 Encounter for screening for other viral diseases (ICD-10 - Z11.59) Will screen for hepatitis C as is the general recommendation 07/09/2024 Encounter for screening examination for other mental health and behavioral disorders (ICD-10 - Z13.39) PHQ score reviewed n o further interventions warranted at this time 07/09/2024 Other This note was created with voice dictation recognition software and may contain errors of grammar and syntax. Also labs were reviewed with patient. Plan Of Treatment Pending Test Test Name Order Date CT Low Dose Lung Screening 07/09/2024 Urinalysis, Complete-[id number] 07/09/2024 CBC With Differential/Platelet-[id number] Vitamin D, 27-[id number] 07/09/2024 Comp. Metabolic Panel ([id number] LP+Non-HDL Cholesterol-[id number] 07/09/2024 HCV Antibody-[id number] 07/09/2024 Next Appt Details Follow Up: 3 month f/u, trevor thorne in 1 yeae, Reason: Provider Name:Shani Chapman , 08/27/2024 11:15:00 AM, [address] [place] [address], [address], [place], [place], [phone], Provider Name:Shani Chapman , 08/02/2025 09:00:00 AM, [address] [facility], [address], [place], [place], [phone], Progress Notes * Aminta URBINA WDOB: [birth year] (78 yo F)Acc No.[id number]:07/09/2024 Progress Note Patient:?Aminta URBINA W Appointment Provider:?KYLIE Benjamin :1945???Age:78 Y???Sex:Female S upervising Provider:Pari Martinez DNP Date:07/09/2024 Address:[address] [place], [place] [id number] Pcp:Shani Chapman Subjective: * Chief Complaints: * ???1. AWV. * HPI: ???Medicare Annual Visit:? Patient presents today for her annual wellness visit. Patient states she is up-to-date with her annual dental cleanings and vision exams. ?Type of Visit?-?Subsequent Annual Wellness Visit ?Language or Communication barrier addressed?-?Yes ?Health Risk Assessment?- Do you currently use tobacco products??See Social History ?- How often do you exercise??See Social History ?- In the past two weeks, how often have you felt depressed, down or hopeless??See PHQ2 and PHQ9 ?- How many times have you fallen in your home??Never ?Immunization Status addressed?-?Yes ?Depression Screening?-?PHQ2 done ?Vision Screening?-?Yes, patient sees regular online activist or brine purifier ?Hearing Screening?-?Yes, no gross abnormalities ?Fall Risk and Home Safety?Get Up and Go Evaluation?under 12 seconds ?Medication evaluation and reconcilliation performed?Yes ?Psychosocial Risks?-?No overt psychosocial risks shown, observed, or mentioned ?Behavioral Risks?-?Patient seems very well adjusted and no behavioral issues noted ?Activities of daily living?-?Not impaired ?Cognitive Screening?-?No overt cognitive deficiency is apparent by direct observation ???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 She states she recently underwent right breast lumpectomy and is scheduled to be seeing her specialist next week to discuss if medications are warranted for breast cancer prevention. ???Depression Screening:?PHQ-2 (2015 Edition)?Little interest or pleasure in doing things??Not at all ?Feeling down, depressed, or hopeless??Not at all ?Total Score?0 * ROS:?General/Constitutional:?Denies?Change in appetite.?Denies?Chills.?Denies?Fever.?Denies?Sleep disturbance.?Denies?Weight gain.?Denies?Weight loss.?Respiratory:?Denies?Cough.?Denies?Shortness of breath.?Denies?Shortness of breath with exertion.?Denies?Sputum production.?Denies?Wheezing.?Cardiovascular:?Denies?Chest pain.?Denies?Chest pain with exertion.?Denies?Claudication.?Denies?Dizziness.?Denies?Dyspnea on exertion.?Denies?Irregular heartbeat.?Denies?Palpitations.?Denies?Shortness of breath.?Denies?Weight gain.?Gastrointestinal:?Denies?Dark Stools.?Denies?Abdominal pain.?Denies?Blood in stool.?Denies?Constipation.?Denies?Decreased appetite.?Denies?Heartburn.?Denies?Nausea.?Denies?Rectal bleeding.?Denies?Weight loss.?Hematology:?Denies?Bleeding problems.?Denies?Easy bruising.?Denies?Prolonged bleeding.?Denies?Swollen glands.?Genitourinary:?Denies?Nocturia.?Denies?Blood in urine.?Denies?Difficulty urinating.?Denies?Frequent urination.? * Medical History:?Hammer toes , Malignant neoplasm of uterus, part unspecified, Other cataract, Rib fracture, Major depressive disorder, recurrent, in partial remission, Chronic kidney disease, stage 2 (mild), Age-related osteoporosis without current pathological fracture, Allergy status to penicillin, Personal history of malignant neoplasm of other parts of uterus, Acquired absence of other left toe(s), Vitamin D deficiency, unspecified, Hypertensive chronic kidney disease with stage 1 through stage 4 chronic kidney disease, or unspecified chronic kidney disease, Nicotine dependence, cigarettes, with unspecified nicotine-induced disorders, Rectal prolapse (resolved 10/03/2020), Wedge compression fracture of unspecified thoracic vertebra, initial encounter for closed fracture (resolved 09/18/2022). * Surgical History:?Right Knee Patella Repair 07/19/2015, Amputation of 5th toe 2014, Corrective surgery (hammer toes) 2011, Hysterectomy , Perineal Rectosigmoidectomy (Altemeier Procedure) 05/2020, Hammertoe Correction 10/2020, Vertebra-pasty 06/2022. * Hospitalization/Major Diagno stic Procedure:?Right Patella Fracture 07/18/2015. * Family History:?Father: dece ased, Myeloma at 77.?Mother: , COPD at 89.?Siblings: alive, 1 brother healthy1 sister healthy.?1 brother(s) , 1 sister(s) - healthy. .? (AWV) Family history verified no changes since last visit. * Social History:?Tobacco Use:?Tobacco Control (Standard)?Tobacco use:?Former smoker ?When did you stop smoking??11/25/2019 ?How long has it been since you last smoked??1-5 years ???Drugs/Alcohol:?Drugs?Have you used drugs other than those for medical reasons in the past 12 months??No ?Caffeine?Intake:?2-3 cups per day ?Do you smoke marijuana?: Denies. ?Do you drink alcohol?: Yes, , Daily with dinner. ???Miscellaneous:?Exercise: yes, walking. 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 ???Household:?Household?Marital status:?Drug/Alcohol:?AUDIT-C (Standard)?Did you have a drink containing alcohol in the past year??Yes ?How often did you have six or more drinks on one occasion in the past year??Never (0 point) ?How many drinks did you have on a typical day when you were drinking in the past year??1 or 2 drinks (0 point) ?How often did you have a drink containing alcohol in the past year??Daily or almost daily (4 points) ?Points?4 ?Interpretation?Positive * Medications:?Taking Aspirin 81 MG Tablet Delayed Release 1 tablet Orally Once a day , Taking Senokot 8.6 MG Tablet 2 tablets at bedtime as needed Orally Once a day , Taking Prolia 60 MG/ML Solution Prefilled Syringe 60 mg Subcutaneous Every 26 weeks , Taking Rosuvastatin Calcium 20 MG Tablet TAKE 1 TABLET BY MOUTH ONCE DAILY , Taking buPROPion HCl ER (XL) 300 MG Tablet Extended Release 24 Hour TAKE 1 TABLET BY MOUTH EVERY DAY THE MORNING Orally Once a day , Taking amLODIPine Besylate 5 MG Tablet TAKE 1 AND 1/2 TABLETS BY MOUTH EVERY DAY , Taking Venlafaxine HCl ER 75 MG Capsule Extended Release 24 Hour TAKE 1 CAPSULE BY MOUTH EVERY DAY WITH FOOD , Taking Lisinopril 40 MG Tablet TAKE 1 TABLET BY MOUTH ONCE DAILY , Taking lamoTRIgine 200 MG Tablet TAKE 1 TABLET BY MOUTH DAILY , Discontinued OLANZapine 2.5 MG Tablet Oral PRN , Medication List reviewed and reconciled with the patient * Allergies:?Penicillin G Sodi um: rash - Allergy. Objective: * Vitals:?Temp:96.7F, HR:82/mi n, BP:128/76mm Hg, Wt:129lbs, BMI:22.14Index, Ht:5 ft 4 in, Oxygen sat %:98%. Past Vitals:* 05/13/2024 Temp:96.8F, HR:75/min, BP:Si tting Right Arm: 114/54mm Hg, Wt:131lbs, BMI:22.48Index, Ht:5 ft 4 in, Oxygen sat %:98% * 11/04/2023 BP:Sitting Right Arm: 124/74 mm Hg, Wt:132lbs, BMI:22.66Index, Ht:5 ft 4 in * 07/05/2023 Temp:97.7F, HR:132/82/min, B P:83mm Hg, Wt:135lbs, BMI:23.17Index, Ht:5 ft 4 in, Oxygen sat %:95% * Examination: ???General Examination: ?GENERAL APPEARANCE:?Age appropriate, in no acute distress, well developed, well nourished.?HEAD:?normocephalic, atraumatic.?EYES:?extraocular movement intact (EOMI), sclera non-icteric.?NECK/THYROID:?neck supple, full range of motion, no thyromegaly.?LYMPH NODES:?no cervical adenopathy.?HEART:?regular rate and rhythm, S1, S2 normal.?LUNGS:?clear to auscultation bilaterally.?BACK:?no kyphosis, no scoliosis.?EXTREMITIES:?no clubbing, cyanosis, or edema.?NEUROLOGIC:?nonfocal, alert and oriented, gait normal, motor strength grossly normal upper and lower extremities, no tremor.?PSYCH:?alert, oriented, good eye contact.? Assessment: * Assessment: 1.?Hypertensive chronic kidn ey disease with stage 1 through stage 4 chronic kidney disease, or unspecified chronic kidney disease - I12.9???2.?Encounter for general adult medical examination without abnormal findings - Z00.00 (Primary)???3.?Chronic kidney disease, stage 2 (mild) - N18.2???4.?Mixed hyperlipidemia - E78.2???5.?Major depressive disorder, recurrent, in partial remission - F33.41???6. Malignant neoplasm of unspecified site of unspecified female breast - C50.919???7.?Age- related osteoporosis without current pathological fracture - M81.0???8.?Nicotine dependence, cigarettes, in remission - F17.211???9.?Vitamin D deficiency, unspecified - E55.9???10.?Encounter for screening for malignant neoplasm of colon - Z12.11???11.?Encounter for screening mammogram for malignant neoplasm of breast - Z12.31???12.?Encounter for screening for osteoporosis - Z13.820 ??13.?Asymptomatic menopausal state - Z78.0???14.?Encounter for screening for cardiovascular disorders - Z13.6???15.?Encounter for immunization - Z23???16.?Encounter for antibody response examination - Z01.84?? 17.?Encounter for screening for other viral diseases - Z11.59???18.?Encounter for screening examination for other mental health and behavioral disorders - Z13.39??? Plan: * Treatment: 2.?Hypertensive chronic kidn ey disease with stage 1 through stage 4 chronic kidney disease, or unspecified chronic kidney disease? Clinical Notes: Blood pressure stable during today's visit. Patient to remain on current medication regimen?? 3.?Chronic kidney disease, s tage 2 (mild)? Clinical Notes: Stable with estimated GFR in the upper 70s. Continue control of comorbidity of hypertension?? 4.?Mixed hyperlipidemia?LAB: LP+Non-HDL Cholesterol-[id number] Clinical Notes: Will obtain an updated lipid panel to verify by adequate LDL control. Patient to remain on current medication regimen and control of comorbidities of hypertension?? 5.?Major depressive disorder , recurrent, in partial remission? Clinical Notes: Stable at present time and patient to continue working with her behavioral health prescriber as well as continue current medication regimen as prescribed by this provider?? 6.?Malignant neoplasm of uns pecified site of unspecified female breast? Clinical Notes: Patient is scheduled to be seen by her breast specialist/oncologist next week to review recent right breast lumpectomy and sentinel node dissection as well as discussed treatment options.?? 7.?Age-related osteoporosis without current pathological fracture? Clinical Notes: Patient recently completed an upper updated DEXA scan which did reveal improvement in bone density and she is now noted to have osteopenia. Patient states she is going to discuss this with her oncologist to determine appropriate treatments, if needed, now that her bone health has improved due to Prolia?? 8.?Nicotine dependence, ciga rettes, in remission?Imaging: CT Low Dose Lung Screening Clinical Notes: Remains in remission?? 9.?Vitamin D deficiency, uns pecified?LAB: Vitamin D, 81-[id number] Clinical Notes: Will check level as adjunct evaluation for fall risk and possibly dementia?? 10.?Encounter for screening for malignant neoplasm of colon? Clinical Notes: Up-to-date on colon cancer screenings. Patient states she was advised by her form raiser that she no longer has to complete any further colonoscopies. Last colonoscopy was without significant findings and patient aware that should she have any bowel changes to follow-up with the office independent of her being 78 years old?? 11.?Encounter for screening mammogram for malignant neoplasm of breast? Clinical Notes: Patient is followed by her breast specialist and oncologist and is up-to-date with breast cancer screenings?? 12.?Encounter for screening for osteoporosis? Clinical Notes: Up-to-date on osteoporosis screening?? 13.?Asymptomatic menopausal state? Clinical Notes: See plan above?? 14.?Encounter for screening for cardiovascular disorders? Clinical Notes: Blood pressure stable. Will check for comorbidity of hyperlipidemia and hyperglycemia and use this data to further assess risk?? 15.?Encounter for immunizati on? Clinical Notes: Vaccines up-to-date?? 16.?Encounter for antibody r esponse examination? Clinical Notes: Titers have been checked in the past and is immune to rubeola?? 17.?Encounter for screening for other viral diseases?LAB: HCV Antibody-[id number] Clinical Notes: Will screen for hepatitis C as is the general recommendation?? 18.?Encounter for screening examination for other mental health and behavioral disorders? Clinical Notes: PHQ score reviewed no further interventions warranted at this time?? 19.?Others? Clinical Notes: This note was created with voice dictation recognition software and may contain errors of grammar and syntax. Also labs were reviewed with patient.?? * Procedure Codes:?1123F ACP D ISCUSS/DSCN MKR DOCD, Modifiers: 25 , 1124F ACP DISCUSS-NO DSCNMKR DOCD, Modifiers: 25 * Preventive Medicine:? ??YOUR PREVENTIVE WELLNESS PLAN:?Prenar?The Recommended Frequency is:?1 dose age 65+ ?Breast Cancer Screening (Mammogram):?The Recommended Frequency is:?Every 1 year, age 50-74 (without family history), Every 2 year, age 40-50 (without family history) ?Osteoporosis Screening (Bone Density Measurement):?The Recommended Frequency is:?Routinely, for women ages 65+ ?Colorectal Cancer Screening:?The Recommended Frequency is:?Every 10 years, Colonoscopy, Every 3 years, Cologuard ?Pneumococcal (Pneumonia) Vaccine:?The Recommended Frequency is:?1 dose age 65+ ?Influenza (Flu) Vaccine:?The Recommended Frequency is:?Annually * Follow Up:?3 month f/u, trevor al in 1 yeae * Billing Information: * Visit Code:? G0439 Subsequent Annual Wellness. G0442 Annual Alcohol Misuse Screening, 15 min. Modifiers: G0446 Cardiovascular Screening. Modifiers: 44 Annual Depression Screening, 15 min. Modifiers: 59 * Procedure Codes:? 1123F ACP DISCUSS/DSCN MKR DOCD. Modifiers: 112F ACP DISCUSS-NO DSCNMKR DOCD. Modifiers: 25 Review Notes: Shani Chapman 07/12/2024 06:49:24 AM EST > I was present and available for consultation duringthis visit. I have reviewed the encounter documentation and agree with the documentation provided by Pari Martinez DNP including assessment, treatment plan and discussion.* Sign off status: Completed true * Appointment Provider:?KYLIE Benjamin Date:?07/09/2024 Generated for Davina mckeon/Karla/Edward on:?08/05/2024 07:03 AM EST History and Physical Notes * HPI (History of Present Illness) Category Sub-Category Detail Notes Category Not es Medicare Annual Visit Type of Visit -: Subsequ ent Annual Wellness Visit Language or Communication mariza crum addressed -: Yes Health Risk Assessment - Do you currentl y use tobacco products?: See Social History - How often do you exercise?: See Social History - In the past two weeks, how often have you felt depressed, down or hopeless?: See PHQ2 and PHQ9 - How many times have you fallen in your home?: Never Immunization Status addressed -: Yes Vision Screening -: Yes, patient sees regular online activist or brine purifier Depression Screening -: PHQ2 done Hearing Screening -: Yes, no gross abnormalities Fall Risk and Home Safety Get Up and Go Evaluati on: under 12 seconds Medication evaluation and reconcilliatio n performed: Yes Psychosocial Risks -: No overt psychoso cial risks shown, observed, or mentioned Behavioral Risks -: Patient seems jojo y well adjusted and no behavioral issues noted Activities of daily living -: Not impaired Cognitive Screening -: No overt cognitiv e deficiency is apparent by direct observation Depression Screening PHQ-2 (2015 Edition) Little interest or pleasure in doing things?: Not at all Feeling down, depressed, or hopeless?: N ot at all Total Score: 0 Examination Category Sub-Category Detail Notes Category Not es General Examination GENERAL APPEARANCE: Age appr opriate, in no acute distress, well developed, well nourished HEAD: normocephalic, atrau matic EYES: extraocular movement intact (EOMI), sclera non-icteric NECK/THYROID: neck supple, full ra nge of motion, no thyromegaly HEART: regular rate and rhy thm, S1, S2 normal LUNGS: clear to auscultatio n bilaterally NEUROLOGIC: nonfocal, alert and oriented, gait normal, motor strength grossly normal upper and lower extremities, no tremor EXTREMITIES: no clubbing, cyanosi s, or edema BACK: no kyphosis, no scol iosis LYMPH NODES: no cervical adenopat hy PSYCH: alert, oriented, goo d eye contact
--- OUTSIDE RECORDS SUMMARY | 2024-08-05 07:03 | XMS_ITS ---
Author Organization Shani Chapman MD Address [address] [place] [phone] Care Team Providers Care Merchandise Presentation Associate Name Role Phone Shani Chapman Primary Care Provider REASON FOR VISIT [facility] General Surgery for Beast Cancer Encounters Encounter Location Date Provider Diagnosis Shani Chapman MD [address] [place] [address] [place] [phone] 05/20/2024 Shani Chapman Plan Of Treatment Next Appt Details Provider Name:Shani Chapman , 08/27/2024 11:15:00 AM, [address] [place] [address], [phone], Provider Name:Shani Chapman , 08/02/2025 09:00:00 AM, [address] [place] [address], [phone], Progress Notes * Aminta URBINA WDOB: [birth year] (78 yo F)Acc No.[id number]:05/20/2024 Progress Note Patient:?Aminta URBINA Provider:?Shani Chapman MD :1945???Age:78 Y???Sex:Female D ate:05/20/2024 Address:[address] [place] [id number] Subjective: * Chief Complaints: * ???1. [facility] [place] General Surgery fo r Beast Cancer. * Medical History:? Objective: * Vitals:? Past Vitals:* 05/13/2024 Temp:96.8F, HR:75/min, BP:Si tting Right Arm: 114/54mm Hg, Wt:131lbs, BMI:22.48Index, Ht:5 ft 4 in, Oxygen sat %:98% * 11/04/2023 BP:Sitting Right Arm: 124/74 mm Hg, Wt:132lbs, BMI:22.66Index, Ht:5 ft 4 in * 07/05/2023 Temp:97.7F, HR:132/82/min, B P:83mm Hg, Wt:135lbs, BMI:23.17Index, Ht:5 ft 4 in, Oxygen sat %:95% Assessment: Plan: * Treatment: * Images: Billing Information: * Visit Code:? * Procedure Codes:? * Electronic signature of Viridiana Chapman MD on 08/05/2024 at 07:03 AM EST Sign off status: Pending * Provider:?Shani Chapman MD Date:?05/20 Generated for Davina mckeon/Karla/Heathersmitting on:?08/05/2024 07:03 AM EST
--- OUTSIDE RECORDS SUMMARY | 2024-08-05 07:03 | XMS_ITS | Patient Health Record ---
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 No known palpable abnormalities. COMPARISON: Prior exams back to 10/15/2006. TECHNIQUE: Full-field digital CC and MLO 3D tomosynthesis images of both breasts were acquired. Computer-aided detection (CAD) was utilized in the interpretation of this study. DENSITY: There are scattered areas of fibroglandular density. FINDINGS: Single view nodular asymmetry overlying the pectoralis muscle inferiorly in the right breast. No suspicious findings are seen in the left breast. IMPRESSION: Additional imaging recommended. We will recall the patient. RECOMMENDATION: Diagnostic 3D tomosynthesis of the right breast with scheduled ultrasound Full field digital RIGHT ML and spot compression MLO 3D tomosynthesis images are recommended along with focused breast ultrasound if findings persist. BI-RADS: 0 (Incomplete - Needs additional imaging evaluation. We will recall the patient.) Lay letter mailed to patient WSN: [id number] Ordering Physician: Shani Chapman Dictated By: Gildardo DAMON, Landen Santos PROCEDURE: MM Digita l Mammo Screening INDICATION: Screenin g. No known palpable abnormalities. COMPARISON: Prior ex ams back to 10/15/2006. TECHNIQUE: Full-fiel d digital CC and MLO 3D tomosynthesis images of both breasts were acquired. Computer-aided detection (CAD) was utilized in the interpretation of this study. DENSITY: There are scattered areas of fibroglandular density. FINDINGS: Single vie w nodular asymmetry overlying the pectoralis muscle inferiorly in the ri ght breast. No suspicious findin gs are seen in the left breast. IMPRESSION: Addition al imaging recommended. We will recall the patient. RECOMMENDATION: Diagnostic 3D tomosynthesis of the right breast with scheduled ultrasound Full field digital RIGHT ML and spot compression MLO 3D tomosynthesis images are recommended along wi th focused breast ultrasound if findings persist. BI-RADS: 0 (Incomple te - Needs additional imaging evaluation. We will recall the patient.) Lay letter mailed to patient WSN: [id number] Ordering Physician: Shani Chapman Urinalysis, Complete-[id number] Reviewed date:12/16/2023 08:19:21 AM Interpretation: Performing Lab:[facility], [address] [facility], Phone - [phone], Director - RIWero Notes/Report: Specific Enterprise 1.024 1.005-1.030 pH 7.0 5.0-7.5 Urine-Color Yellow Yellow Appearance Clear Clear WBC Esterase 1+ Negative Protein Trace Negative/Trace Glucose Negative Negative Ketones Negative Negative Occult Blood Negative Negative Bilirubin Negative Negative Urobilinogen,Semi-Qn 0.2 0.2-1.0 mg/dL Nitrite, Urine Negative Negative Microscopic Examination See below: Micr oscopic was indicated and was performed. WBC 11-30 0 - 5 /hpf RBC None seen 0 - 2 /hpf Epithelial Cells (non renal) 0-10 0 - 10 /hpf Casts None seen None seen /lpf Bacteria None seen None seen/Few CBC With Differential/Platel et-[id number] Reviewed date:12/16/2023 08:19:21 AM Interpretation: Performing Lab:[facility], [address] [facility], [place], Phone - [phone], Director - Suzie Notes/Report: WBC 4.8 3.4-10.8 x10E3/uL RBC 3.87 3.77-5.28 x10E6/uL Hemoglobin 12.9 11.1-15.9 g/dL Hematocrit 37.5 34.0-46.6 % MCV 97 79-97 fL MCH 33.3 26.6-33.0 pg MCHC 34.4 31.5-35.7 g/dL RDW 11.9 11.7-15.4 % Platelets 293 150-450 x10E3/uL Neutrophils 54 Not Estab. % Lymphs 31 Not Estab. % Monocytes 15 Not Estab. % Eos 0 Not Estab. % Basos 0 Not Estab. % Neutrophils (Absolute) 2.6 1.4-7.0 x10E3/uL Lymphs (Absolute) 1.5 0.7-3.1 x10E3/uL Monocytes(Absolute) 0.7 0.1-0.9 x10E3/uL Eos (Absolute) 0.0 0.0-0.4 x10E3/uL Baso (Absolute) 0.0 0.0-0.2 x10E3/uL Immature Granulocytes 0 Not Estab. % Immature Grans (Abs) 0.0 0.0-0.1 x10E3/uL Vitamin D, [id number] Reviewed date:12/16/2023 08:19:21 AM Interpretation: Performing Lab:[facility], [address] [place] [address], [place], Phone - [phone], Director - Suzie Notes/Report: Vitamin D, 25-Hydroxy 46.5 30.0-100.0 ng/mL Vitamin D deficiency has been defined by the [place] of [employer] and an Endocrine Society practice guideline as a level of serum 25-OH vitamin D less than 20 ng/mL (1,2). The Endocrine Society went on to further define vitamin D insufficiency as a level between 21 and 29 ng/mL (2). 1. IOM ([place] of [employer]). 2010. Dietary reference intakes for calcium and D. [place]: The National Academies Press. 2. Lizbeth MF, Suzie NC, Adilene BENAVIDEZ, et al. Evaluation, treatment, and prevention of vitamin D deficiency: an Endocrine Society clinical practice guideline. JCEM. 2010; 96(7):1911-30. Albumin/Creatinine Ratio,i ne-[id number] Reviewed date:12/16/2023 08:19:21 AM Interpretation: Performing Lab:[facility] [place], [address] [place] [address], Phone - [phone], Director - MDJodry Notes/Report: Creatinine, Urine 103.0 Not Estab. mg/dL Albumin, Urine 23.5 Not Estab. ug/mL Alb/Creat Ratio 23 0-29 mg/g creat Normal: 0 - 29 Moderately increased: 30 - 300 Severely increased: >300 LP+Non-HDL Cholesterol-[id number] 5 Reviewed date:12/16/2023 08:19:22 AM Interpretation: Performing Lab:[facility] [place], [address] [place] [address], Phone - [phone], Director - MDKalyany Notes/Report: Cholesterol, Total 168 100-199 mg/dL Triglycerides 68 0-149 mg/dL HDL Cholesterol 65 >39 mg/dL VLDL Cholesterol Alfa 13 5-40 mg/dL LDL Chol Calc (NIH) 90 0-99 mg/dL Non-HDL Cholesterol 103 0-129 mg/dL PDF Report Reviewed date:12/16/2023 08:19:22 AM Interpretation: Performing Lab:[facility] [place], [address] [place] [address], Phone - [phone], Director - MDJoy Notes/Report: MM Digital Mammo Unilat Marti yee Reviewed date:03/25/2024 05:14:50 PM Interpretation: Performing Lab: Notes/Report: A D D E N D U M as of: [id number] Right axillary ultrasound is normal WSN: [id number] Ordering Physician: Shani Chapman Dictated By: Ha DAMON, Eben Valadez PROCEDURE: MM Digital Mammo Unilat Right, US Breast Right Limited INDICATION: Callback for single view right breast asymmetry COMPARISON: Multiple prior to the most recent from 03/05/2024 TECHNIQUE: Digital diagnostic mammogram consisting of ML and spot compression MLO views with 3D tomosynthesis and CAD In addition, targeted high-resolution ultrasound of the right breast was performed DENSITY: There are scattered areas of fibroglandular density. FINDINGS: 0.6 cm round isodense nodule with partially obscured borders in the superior aspect of the right breast approximately 9 cm from the nipple. This localizes laterally on the tomographic images. Right breast ultrasound demonstrates a 0.5 cm hypoechoic mass at the 11:00 position 9 cm from the nipple. Mass has slightly irregular borders. It is considered suspicious. It likely corresponds to the mammographic finding IMPRESSION: Mass at the 11:00 position is considered suspicious. Ultrasound-guided biopsy is recommended. RECOMMENDATION: Ultrasound guided core biopsy right breast BI-RADS: 4 (Suspicious) Lay letter mailed to patient WSN: [id number] Ordering Physician: Shani Chapman Dictated By: Eben Bonner MD A Sekou D E N D U Vani as o f: [id number] Right axillary ultrasound is normal WSN: [id number] Ordering Physician: Shani Chapman PROCEDURE: MM Digita l Mammo Unilat Right, US Breast Right Limited INDICATION: Callback for single view right breast asymmetry COMPARISON: Multiple prior to the most recent from 03/05/2024 TECHNIQUE: Digital diagnostic mammogram consisting of ML and spot compression MLO views with 3D tomosynthesis and CAD In addition, targeted high-resolution ultrasound of the ri ght breast was performed DENSITY: There are scattered areas of fibroglandular density. FINDINGS: 0.6 cm round isodens e nodule with partially obscured borders in the superior aspect of the right breast approximately 9 cm from the nipple. This localizes laterally on the tomographic images. Right breast ultraso und demonstrates a 0.5 cm hypoechoic mass at the 11:00 position 9 cm from t he nipple. Mass has slightly irregular borders. It is considered suspiciou s. It likely corresponds to the mammographic finding IMPRESSION: Mass at the 11:00 position is considered suspicious. Ultrasound-guided biopsy is recommended. RECOMMENDATION: Ultrasound guided core biopsy right breast BI-RADS: 4 (Suspicious) Lay letter mailed to patient WSN: [id number] Ordering Physician: Shani Chapman US Breast Right Limited Reviewed date:03/25/2024 05:14:50 PM Interpretation: Performing Lab: Notes/Report: A D D E N D U M as of: [id number] Right axillary ultrasound is normal WSN: [id number] Ordering Physician: Shani Chapman Dictated By: Eben Bonner MD PROCEDURE: MM Digital Mammo Unilat Right, US Breast Right Limited INDICATION: Callback for single view right breast asymmetry COMPARISON: Multiple prior to the most recent from 03/05/2024 TECHNIQUE: Digital diagnostic mammogram consisting of ML and spot compression MLO views with 3D tomosynthesis and CAD In addition, targeted high-resolution ultrasound of the right breast was performed DENSITY: There are scattered areas of fibroglandular density. FINDINGS: 0.6 cm round isodense nodule with partially obscured borders in the superior aspect of the right breast approximately 9 cm from the nipple. This localizes laterally on the tomographic images. Right breast ultrasound demonstrates a 0.5 cm hypoechoic mass at the 11:00 position 9 cm from the nipple. Mass has slightly irregular borders. It is considered suspicious. It likely corresponds to the mammographic finding IMPRESSION: Mass at the 11:00 position is considered suspicious. Ultrasound-guided biopsy is recommended. RECOMMENDATION: Ultrasound guided core biopsy right breast BI-RADS: 4 (Suspicious) Lay letter mailed to patient WSN: [id number] Ordering Physician: Shani Chapman Dictated By: Ha DAMON, Eben Ludwig as o f: [id number] Right axillary ultrasound is normal WSN: [id number] Ordering Physician: Shani Chapman PROCEDURE: MM Digita l Mammo Unilat Right, US Breast Right Limited INDICATION: Callback for single view right breast asymmetry COMPARISON: Multiple prior to the most recent from 03/05/2024 TECHNIQUE: Digital diagnostic mammogram consisting of ML and spot compression MLO views with 3D tomosynthesis and CAD In addition, targeted high-resolution ultrasound of the ri ght breast was performed DENSITY: There are scattered areas of fibroglandular density. FINDINGS: 0.6 cm round isodens e nodule with partially obscured borders in the superior aspect of the right breast approximately 9 cm from the nipple. This localizes laterally on the tomographic images. Right breast ultraso und demonstrates a 0.5 cm hypoechoic mass at the 11:00 position 9 cm from t he nipple. Mass has slightly irregular borders. It is considered suspiciou s. It likely corresponds to the mammographic finding IMPRESSION: Mass at the 11:00 position is considered suspicious. Ultrasound-guided biopsy is recommended. RECOMMENDATION: Ultrasound guided core biopsy right breast BI-RADS: 4 (Suspicious) Lay letter mailed to patient WSN: [id number] Ordering Physician: Shani Chapman Amadeo Screening Digital Reviewed date:04/21/2024 02:58:55 PM Interpretation: Performing Lab: Notes/Report: Urinalysis, Complete-[id number] Reviewed date:05/14/2024 05:06:08 PM Interpretation: Performing Lab:[facility] [place], [address] [facility], Phone - [phone], Director - Suzie Notes/Report: Clinical Information:SRC: Clinical Information:SRC: Specific Enterprise 1.026 1.005-1.030 pH 6.0 5.0-7.5 Urine-Color Yellow Yellow Appearance Clear Clear WBC Esterase Trace Negative Protein Trace Negative/Trace Glucose Negative Negative Ketones Trace Negative Occult Blood Negative Negative Bilirubin Negative Negative Urobilinogen,Semi-Qn 0.2 0.2-1.0 mg/dL Nitrite, Urine Negative Negative Microscopic Examination See below: Micr oscopic was indicated and was performed. WBC 0-5 0 - 5 /hpf RBC None seen 0 - 2 /hpf Epithelial Cells (non renal) 0-10 0 - 10 /hpf Casts None seen None seen /lpf Bacteria None seen None seen/Few CBC With Differential/Platel et-[id number] Reviewed date:05/14/2024 05:06:08 PM Interpretation: Performing Lab:[facility] [place], [address] [facility], Phone - [phone], Director - Suzie Notes/Report: Clinical Information:SRC: WBC 5.0 3.4-10.8 x10E3/uL RBC 3.79 3.77-5.28 x10E6/uL Hemoglobin 12.5 11.1-15.9 g/dL Hematocrit 37.7 34.0-46.6 % MCV 100 79-97 fL MCH 33.0 26.6-33.0 pg MCHC 33.2 31.5-35.7 g/dL RDW 12.0 11.7-15.4 % Platelets 320 150-450 x10E3/uL Neutrophils 45 Not Estab. % Lymphs 38 Not Estab. % Monocytes 15 Not Estab. % Eos 2 Not Estab. % Basos 0 Not Estab. % Neutrophils (Absolute) 2.2 1.4-7.0 x10E3/uL Lymphs (Absolute) 1.9 0.7-3.1 x10E3/uL Monocytes(Absolute) 0.8 0.1-0.9 x10E3/uL Eos (Absolute) 0.1 0.0-0.4 x10E3/uL Baso (Absolute) 0.0 0.0-0.2 x10E3/uL Immature Granulocytes 0 Not Estab. % Immature Grans (Abs) 0.0 0.0-0.1 x10E3/uL Vitamin D, [id number] Reviewed date:05/14/2024 05:06:08 PM Interpretation: Performing Lab:[facility], [address] [place] [address], Phone - [phone], Director - Suzie Notes/Report: Clinical Information:SRC: Vitamin D, 25-Hydroxy 50.8 30.0-100.0 ng/mL Vitamin D deficiency has been defined by the [place] of [employer] and an Endocrine Society practice guideline as a level of serum 25-OH vitamin D less than 20 ng/mL (1,2). The Endocrine Society went on to further define vitamin D insufficiency as a level between 21 and 29 ng/mL (2). 1. IOM ([place] [employer]). 2010. Dietary reference intakes for calcium and D. [place]: The National Academies Press. 2. Lizbeth MF, Suzie NC, Adilene BENAVIDEZ, et al. Evaluation, treatment, and prevention of vitamin D deficiency: an Endocrine Society clinical practice guideline. JCEM. 2010; 96(7):1911-30. Albumin/Creatinine Ratio,Uri [id number] Reviewed date:05/14/2024 05:06:08 PM Interpretation: Performing Lab:[facility], [address] [place] [address], Phone - [phone], Director - Suzie Notes/Report: Clinical Information:SRC: Creatinine, Urine 119.4 Not Estab. mg/dL Albumin, Urine 35.0 Not Estab. ug/mL Alb/Creat Ratio 29 0-29 mg/g creat Normal: 0 - 29 Moderately increased: 30 - 300 Severely increased: >300 Comp. Metabolic Panel (14)-3 [id number] Reviewed date:05/14/2024 05:06:08 PM Interpretation: Performing Lab:[facility], [address] [place] [address], Phone - [phone], Director - Suzie Notes/Report: Clinical Information:SRC: Glucose 111 70-99 mg/dL BUN 17 8-27 mg/dL Creatinine 0.93 0.57-1.00 mg/dL eGFR 62 >59 mL/min/1.73 BUN/Creatinine Ratio 18 12-28 Sodium 141 134-144 mmol/L Potassium 4.1 3.5-5.2 mmol/L Chloride 100 96-106 mmol/L Carbon Dioxide, Total 27 20-29 mmol/L Calcium 9.4 8.7-10.3 mg/dL Protein, Total 7.2 6.0-8.5 g/dL Albumin 4.4 3.8-4.8 g/dL Globulin, Total 2.8 1.5-4.5 g/dL Bilirubin, Total 0.2 0.0-1.2 mg/dL Alkaline Phosphatase 98 44-121 IU/L AST (SGOT) 26 0-40 IU/L ALT (SGPT) 35 0-32 IU/L US Core Biopsy Right Reviewed date:04/07/2024 07:04:13 AM Interpretation: Performing Lab: Notes/Report: PROCEDURE: Incisional core biopsy of the right breast with marker placement and post-procedure mammography. INDICATION: [facility] the 11:00 right breast, 9 cm from the nipple for which biopsy was recommended. TECHNIQUE: The procedure was explained to the patient who signed informed consent. Ultrasound was used to localize the mass prior to biopsy. The skin was cleansed and local anesthetic was administered. A small skin incision was made for access. Using a sterile biopsy tray and a 14-gauge spring-loaded core biopsy device, the needle was inserted and core samples were obtained from the mass. Each specimen was immersed in formalin. After sampling, a wing-shaped metallic tissue marker clip was placed into the region of biopsy with ultrasound guidance. A digital right mammogram taken after the procedure shows successful clip deployment. Compression was held and hemostasis was achieved. A sterile pressure dressing was applied and the patient was given an ice pack. She was also given verbal as well as written instructions for care of the puncture site and dressing including steps that should be taken should she be concerned about a developing complication. Overall, the patient tolerated the procedure well and there was no evidence of immediate complication. IMPRESSION: 1. Ultrasound localization of right breast mass prior to biopsy. 2. Incisional core biopsy of the mass was performed with ultrasound guidance. A sterile biopsy tray and 14-gauge spring-loaded core biopsy device were used. 3. Placement of tissue marker (wing-shaped clip) into the site of biopsy. 4. Digital right mammogram demonstrates successful clip deployment. 5. The targeted lesion measures 0.5 x 0.5 x 0.4 cm by Ultrasound. When the results of pathology are known, a supplemental report will be dictated. WSN: [id number] Ordering Physician: Shani Chapman Dictated By: Carmencita Jones MD PROCEDURE: Incisiona l core biopsy of the right breast with marker placement and post-procedure mammography. INDICATION: Ultrasou nd performed at [facility] radiology and imaging, [facility] showed a mass in the 11:00 right breast, 9 cm from the nipple for which biopsy was recommended. TECHNIQUE: The procedure was explained to the patient who signed informed consent. Ultrasound was used to localize the mass prior to biopsy. The skin was cleansed and local anesthetic was administered. A small skin incision was made for access. Using a sterile biopsy tray and a 14-gauge spring-loaded core biopsy device, the needle w as inserted and core samples were obtained from the mass. Each specimen was immersed in formalin. After sampling, a wing-shaped metallic tissue marker clip was placed into the region of biopsy wit h ultrasound guidance. A digital right mammogram taken after the procedure shows successful clip deployment. Compression was held and hemostasis was achieved. A sterile pressure dressing was applied and the patient was given an ice pack. She was also given verbal as well as written instructions for care of the puncture site and dressing including steps that should be taken should she be concerned about a developing complication. Overal l, the patient tolerated the procedure well and there was no evidence of immediat e complication. IMPRESSION: 1. Ultrasound localization of right breast mass prior to biopsy. 2. Incisional core biopsy of the mass was performed with ultrasound guidance. A sterile biopsy tray and 14-gauge spring-loaded core biopsy device were used. 3. Placement of tiss ue marker (wing-shaped clip) into the site of biopsy. 4. Digital right mammogram demonstrates successful clip deployment. 5. The targeted lesi on measures 0.5 x 0.5 x 0.4 cm by Ultrasound. When the results of pathology are known, a supplemental report will be dictated. WSN: [id number] Ordering Physician: Shani Chapman MM Digital Mammo Post Clip U ni/Right Reviewed date:04/07/2024 07:04:13 AM Interpretation: Performing Lab: Notes/Report: PROCEDURE: Incisional core biopsy of the right breast with marker placement and post-procedure mammography. INDICATION: Ultrasound performed at [facility] showed a mass in the 11:00 right breast, 9 cm from the nipple for which biopsy was recommended. TECHNIQUE: The procedure was explained to the patient who signed informed consent. Ultrasound was used to localize the mass prior to biopsy. The skin was cleansed and local anesthetic was administered. A small skin incision was made for access. Using a sterile biopsy tray and a 14-gauge spring-loaded core biopsy device, the needle was inserted and core samples were obtained from the mass. Each specimen was immersed in formalin. After sampling, a wing-shaped metallic tissue marker clip was placed into the region of biopsy with ultrasound guidance. A digital right mammogram taken after the procedure shows successful clip deployment. Compression was held and hemostasis was achieved. A sterile pressure dressing was applied and the patient was given an ice pack. She was also given verbal as well as written instructions for care of the puncture site and dressing including steps that should be taken should she be concerned about a developing complication. Overall, the patient tolerated the procedure well and there was no evidence of immediate complication. IMPRESSION: 1. Ultrasound localization of right breast mass prior to biopsy. 2. Incisional core biopsy of the mass was performed with ultrasound guidance. A sterile biopsy tray and 14-gauge spring-loaded core biopsy device were used. 3. Placement of tissue marker (wing-shaped clip) into the site of biopsy. 4. Digital right mammogram demonstrates successful clip deployment. 5. The targeted lesion measures 0.5 x 0.5 x 0.4 cm by Ultrasound. When the results of pathology are known, a supplemental report will be dictated. WSN: [id number] Ordering Physician: Shani Chapman Dictated By: Carmencita Jones MD PROCEDURE: Incisiona l core biopsy of the right breast with marker placement and post-procedure mammography. INDICATION: Ultrasou nd performed at [facility] showed a mass in the 11:00 right breast, 9 cm from the nipple for which biopsy was recommended. TECHNIQUE: The procedure was explained to the patient who signed informed consent. Ultrasound was used to localize the mass prior to biopsy. The skin was cleansed and local anesthetic was administered. A small skin incision was made for access. Using a sterile biopsy tray and a 14-gauge spring-loaded core biopsy device, the needle w as inserted and core samples were obtained from the mass. Each specimen was immersed in formalin. After sampling, a wing-shaped metallic tissue marker clip was placed into the region of biopsy wit h ultrasound guidance. A digital right mammogram taken after the procedure shows successful clip deployment. Compression was held and hemostasis was achieved. A sterile pressure dressing was applied and the patient was given an ice pack. She was also given verbal as well as written instructions for care of the puncture site and dressing including steps that should be taken should she be concerned about a developing complication. Overal l, the patient tolerated the procedure well and there was no evidence of immediat e complication. IMPRESSION: 1. Ultrasound localization of right breast mass prior to biopsy. 2. Incisional core biopsy of the mass was performed with ultrasound guidance. A sterile biopsy tray and 14-gauge spring-loaded core biopsy device were used. 3. Placement of tiss ue marker (wing-shaped clip) into the site of biopsy. 4. Digital right mammogram demonstrates successful clip deployment. 5. The targeted lesi on measures 0.5 x 0.5 x 0.4 cm by Ultrasound. When the results of pathology are known, a supplemental report will be dictated. WSN: [id number] Ordering Physician: Shani Chapman Reason For Referral Reason faxed Diagnosis 1 Major depressive dis order, recurrent, in partial remission (F33.41) Referral Organization Shani RUVALCABA Referring Provider First Name Shani Referring Provider Last Name Ari Referring Provider Speciality Internal M edicine Referred Provider Tarsha Peterson Referred Provider Specialty Psychiatry General Notes Sanna CHACON 02/25 04:47:13 PM >faxed Referral Priority Routine Reason Faxed Diagnosis 1 Malignant neoplasm o f unspecified site of unspecified female breast (C50.919) Referral Organization Shani RUVALCABA Referring Provider First Name Shani Referring Provider Last Name Ari Referring Provider Speciality Internal M edicine Referred Provider Abdirashid Hudson Referred Provider Specialty General Surg delroy General Notes Rosita CHACON 09:11:55 AM > Faxed booked with Milena [phone] fax # [phone], Rosita CHACON 04/13/2024 09:12:38 AM > pt aware Referral Priority Routine Referral Appointment Date 04/23/2024 Medications Medication SIG (Take, Route, Frequency, Duration) Notes Start Date End Date Status Venlafaxine HCl ER 75 MG TAKE 1 CAPSULE BY MOUTH EVERY DAY WITH FOOD for 30 Activ e Rosuvastatin Calcium 20 MG TAKE 1 TABLET BY MOUTH ONCE DAILY for 100 Active Prolia 60 MG/ML 60 mg Subcutaneous E very 26 weeks 05/01/2022 Active amLODIPine Besylate 5 MG TAKE 1 AND 1/2 TABLETS BY MOUTH EVERY DAY for 90 Active buPROPion HCl ER (XL) 300 MG TAKE 1 TABLET BY MOUTH EVERY DAY THE MORNING Orally Once a day for 90 days Active Senokot 8.6 MG 2 tablets at bedtime as needed Orally Once a day for 30 day(s) Active Aspirin 81 MG 1 tablet Orally Once a day Active lamoTRIgine 200 MG TAKE 1 TABLET BY GIRISH TH DAILY for 90 Active Lisinopril 40 MG TAKE 1 TABLET BY GIRISH TH ONCE DAILY for 100 Active Immunizations Vaccine Route Administration Date Status Comme nts COVID COMIRNATY Pfizer Unknown 04/28/2024 Administered COVID 19 (Pfizer 12+) Unknown 12/07/2021 Administered *PREVNAR 20 IM Intramuscular 05/13/2024 Administered *Influenza, High Dose Seasonal, Quadrivatent Unknown 05/13/2020 Administered *Yznfoogpm-Bswzlxt-Dl gh Dose-65+ Unknown 04/28/2024 Administered COVID COMIRNATY Pfizer Unknown 05/21/2023 Administered COVID-19 Pfizer BiValent Booster Unknown 05/07/2022 Administered YEWOK-65-Kekkdh Vaccine Unknown 06/05/2021 Administered MUBNC-04-Qrffcz Vaccine Unknown 10/26/2020 Administered WLUCB-23-Wsnmwp Vaccine Unknown 10/05/2020 Administered Influenza Unknown 10/05/2020 Administered Influenza IM Intramuscular 05/28/2016 Administered Influenza (Fluad) Unknown 05/21/2023 Administered Influenza (Fluad) Unknown 06/07/2022 Administered Influenza (Fluad) Unknown 05/16/2021 Administered Influenza, high dose seasonal Unknown 05/29/2019 Administered Influenza-Afluria (IIV4) IM Intramuscular 07/03/2017 Administered Jqpttboxq-Smgpttmeh-B ial IM Intramuscular 06/03/2018 Administered Pneumococcal polysaccharide PCV 13 Unknown 12/19/2016 Administered Per Jesse brown [facility] Pneumococcal polysaccharide PPV23 Unknown 02/15/2010 Administered RSV Unknown 05/29/2023 Administered Td (adult) preservative free IM Intramuscular 04/07/2020 Administered Td (adult) preservative free Unknown 08/23/2010 Administered Td (adult) preservative free Unknown 06/06/2000 Administered Zoster Unknown 12/17/2012 Administered Social History Tobacco Use: Social History Observation [...] been since you last smoked? 1-5 years Problems Problem Type SNOMED Code ICD Code Onset Dates Problem Status W/U Status Risk Notes Problem Malignant neoplasm of female breast (129127220) Malignant neoplasm of unspecified site of unspecified female breast (C50.919) Active confirmed Problem Vitamin D deficiency (20019139) Vitamin D deficiency, unspecified (E55.9) Active confirmed Problem Mixed hyperlipidemia (764341751) Mixed hyperlipidemia (E78.2) Active confirmed Problem Tobacco user (724005586) Nicotine dependence, cigarettes, in remission (F17.211) Active confirmed Problem Recurrent major depression in remission (44311405) Major depressive disorder, recurrent, in partial remission (F33.41) Active confirmed Problem Chronic kidney disease due to hypertension (880062913860247) Hypertensive chronic kidney disease with stage 1 through stage 4 chronic kidney disease, or unspecified chronic kidney disease (I12.9) Active confirmed Problem Age-related osteoporosis (018029213) Age-related osteoporosis without current pathological fracture (M81.0) Active confirmed Problem Chronic kidney disease stage 2 (245570346) Chronic kidney disease, stage 2 (mild) (N18.2) Active confirmed Problem Personal history of primary malignant neoplasm of female genital organ (893541780) Personal history of malignant neoplasm of other parts of uterus (Z85.42) Active confirmed Problem Allergy to penicillin (18237561) Allergy status to penicillin (Z88.0) Active confirmed Problem Absence of toe (852115182) 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) Active confirmed Problem Mental disorder caused by drug (690095859) Nicotine dependence, cigarettes, with unspecified nicotine-induced disorders (F17.219) Inactive confirmed Problem Wedge compressio n fracture of unspecified thoracic vertebra, initial encounter for closed fracture (S22.000A) Problem resolved confirmed Vital Signs Heart Rate 82 /min 07/09/2024 Temperature 96.7 degrees Fahrenheit 07/09/2024 Oximetry 98 % 07/09/2024 Blood pressure diastolic 76 mm Hg 07/09/2024 Height 5 ft 4 in in 07/09/2024 Blood pressure systolic 128 mm Hg 07/09/2024 Weight 129 lbs 07/09/2024 BMI 22.14 kg/m2 07/09/2024 Encounters Encounter Location Date Provider Diagnosis Shani RUVALCABA [address] [place] [address] [id number] 08/08/2023 Shani RUVALCABA [address] [place] [address] [id number] 08/12/2023 Shani Chapman MD [address] [id number] 08/29/2023 Shani RUVALCABA [address] [place] [address] [id number] 09/02/2023 Shani Chapman Age-related osteoporosis without current pathological fracture M81.0 Shani RUVALCABA [address] [place] [address] [id number] 09/04/2023 Shani RUVALCABA [address] [place] [address] [id number] 09/05/2023 Shani Chapman Age-related osteoporosis without current pathological fracture M81.0 Shani RUVALCABA [address] [place] [address] [id number] 10/10/2023 Shani RUVALCABA [address] [place] [address] [id number] 02/17/2024 Shani Chapman Encounter for screen ing mammogram for malignant neoplasm of breast Z12.31 Shani Chapman MD [address] [id number] 03/10/2024 Shani Chapman MD [address] [place] [address] [id number] 03/16/2024 Shani Chapman MD [address] [place] [address] [id number] 03/19/2024 Shani Chapman MD [address] [place] [address] [id number] 03/24/2024 Shani Chapman MD [address] [place] [address] [id number] 03/30/2024 Shani Chapman MD [address] [place] [address] [id number] 04/01/2024 Shani Chapman MD [address] [place] [address] [id number] 04/08/2024 Shani Chapman Malignant neoplasm o f unspecified site of unspecified female breast C50.919 Shani Chapman MD [address] [place] [address] [id number] 05/06/2024 Shani Chapman MD [address] [place] [address] [id number] 05/18/2024 Shani Chapman MD [address] [place] [address] [id number] 07/27/2024 Shani Chapman MD [address] [place] [address] [id number] 05/15/2024 Shani Chapman MD [address] [place] [address] [id number] 11/04/2023 Shani Chapman Hypertensive chronic kidney disease with stage 1 through stage 4 chronic kidney disease, or unspecified chronic kidney disease I12.9 ; Chronic kidney disease, stage 2 (mild) N18.2 ; Major depressive disorder, recurrent, in partial remission F33.41 ; Age-related osteoporosis without current pathological fracture M81.0 ; Acquired absence of other left toe(s) Z89.422 ; Mixed hyperlipidemia E78.2 ; Nicotine dependence, cigarettes, in remission F17.211 and Vitamin D deficiency, unspecified E55.9 Shani Chapman MD [address] [place] [address] [id number] 03/12/2024 Shani Chapman Age-related osteoporosis without current pathological fracture M81.0 Shani Chapman MD [address] [place] [address] [id number] 09/12/2023 Shani Chapman Age-related osteoporosis without current pathological fracture M81.0 Shani Chapman MD [address] [id number] 05/14/2024 Shani Chapman MD [address] [id number] 07/09/2024 Pari Martinez Encounter for genera l [...] other mental health and behavioral disorders Z13.39 Shani Chapman MD [address] [id number] 05/13/2024 Shani Chapman Malignant neoplasm o f unspecified site of unspecified female breast C50.919 ; Hypertensive chronic kidney disease with stage 1 through stage 4 chronic kidney disease, or unspecified chronic kidney disease I12.9 ; Chronic kidney disease, stage 2 (mild) N18.2 ; Major depressive disorder, recurrent, in partial remission F33.41 ; Age-related osteoporosis without current pathological fracture M81.0 ; Acquired absence of other left toe(s) Z89.422 ; Mixed hyperlipidemia E78.2 ; Nicotine dependence, cigarettes, in remission F17.211 ; Vitamin D deficiency, unspecified E55.9 and Encounter for immunization Z23 Assessments Encounter Date Diagnosis (ICD Code) Assessment Notes Treatment Notes Treatment Clinical Notes Section Notes 09/02/2023 Age-related osteoporosis without current pathological fracture (ICD-10 - M81.0) 09/05/2023 Age-related osteoporosis without current pathological fracture (ICD-10 - M81.0) 09/12/2023 Age-related osteoporosis without current pathological fracture (ICD-10 - M81.0) 02/17/2024 Encounter for screening mammogram for malignant neoplasm of breast (ICD-10 - Z12.31) 03/12/2024 Age-related osteoporosis without current pathological fracture (ICD-10 - M81.0) 05/13/2024 Malignant neoplasm of unspecified site of unspecified female breast (ICD-10 - C50.919) She is scheduled for lumpectomy and sentinel node dissection and treatment is dependent on the results by that this includes radiation and chemoprophylaxis versus chemotherapy. At the present time her chronic medical issues are relatively stable. There is no acute contraindication identified for the proposed surgery. She would be considered low risk for the proposed surgery. 07/09/2024 Hypertensive chronic kidney disease with stage 1 through stage 4 chronic kidney disease, or unspecified chronic kidney disease (ICD-10 - I12.9) Blood pressure stabl e during today's visit. Patient to remain on current medication regimen 07/09/2024 Encounter for general adult medical examination without abnormal findings (ICD-10 - Z00.00) General healthcare up-to-date. Will obtain updated routine labs. Healthcare proxy and MOLST form package given for review and completion. Plan will be for annual in 1 year 04/08/2024 Malignant neoplasm of unspecified site of unspecified female breast (ICD-10 - C50.919) 11/04/2023 Hypertensive chronic kidney disease with stage 1 through stage 4 chronic kidney disease, or unspecified chronic kidney disease (ICD-10 - I12.9) Stable with current medical therapy. Continue same 11/04/2023 Chronic kidney disease, stage 2 (mild) (ICD-10 - N18.2) Her GFR is in the upper 70s. Continue control of comorbidity of hypertension. Recheck status 11/04/2023 Major depressive disorder, recurrent, in partial remission (ICD-10 - F33.41) Stable with current medical therapy with periodic follow-up with behavioral health 07/09/2024 Chronic kidney disease, stage 2 (mild) (ICD-10 - N18.2) Stable with estimate d GFR in the upper 70s. Continue control of comorbidity of hypertension 05/13/2024 Hypertensive chronic kidney disease with stage 1 through stage 4 chronic kidney disease, or unspecified chronic kidney disease (ICD-10 - I12.9) Stable with current medical therapy. She is at the level that would be acceptable by the [employer] mind trial. Continue same. 05/13/2024 Chronic kidney disease, stage 2 (mild) (ICD-10 - N18.2) Stable with estimate d GFR in the upper 70s. Continue control of comorbidity of hypertension 07/09/2024 Mixed hyperlipidemia (ICD-10 - E78.2) Will obtain an updated lipid panel to verify by adequate LDL control. Patient to remain on current medication regimen and control of comorbidities of hypertension 11/04/2023 Age-related osteoporosis without current pathological fracture (ICD-10 - M81.0) Continues on current medical therapy without any side effects. She is due for her bone density later this year and then therapy options can be adjusted 11/04/2023 Acquired absence of other left toe(s) (ICD-10 - Z89.422) Stable without any change in status 05/13/2024 Major depressive disorder, recurrent, in partial remission (ICD-10 - F33.41) She has a new behavioral health provider now. Continue chronic medications as per behavioral health 07/09/2024 Major depressive disorder, recurrent, in partial [...] dissection as well as discussed treatment options. 05/13/2024 Age-related osteoporosis without current pathological fracture (ICD-10 - M81.0) Stable at present. She is due for repeat bone density but that can be done after her pending surgery. 11/04/2023 Mixed hyperlipidemia (ICD-10 - E78.2) Stable on prior labs as reviewed with LDL less than 100. Can continue current medical therapy and control of comorbidity of hypertension. Recheck status 11/04/2023 Nicotine dependence, cigarettes, in remission (ICD-10 - F17.211) Remains in remission 07/09/2024 Age-related osteoporosis without current pathological fracture (ICD-10 - M81.0) Patient recently completed an upper updated DEXA scan which did reveal improvement in bone density and she is now noted to have osteopenia. Patient states she is going to discuss this with her oncologist to determine appropriate treatments, if needed, now that her bone health has improved due to Prolia 05/13/2024 Acquired absence of other left toe(s) (ICD-10 - Z89.422) Stable without any change in status 05/13/2024 Mixed hyperlipidemia (ICD-10 - E78.2) Stable on prior labs reviewed. Her LDL is less than 100. Continue current medical therapy and control of comorbidity of hypertension 07/09/2024 Nicotine dependence, cigarettes, in remission (ICD-10 - F17.211) Remains in remission 11/04/2023 Vitamin D deficiency, unspecified (ICD-10 - E55.9) stable with level greater than 50. 07/09/2024 Vitamin D deficiency, unspecified (ICD-10 - E55.9) Will check level as adjunct evaluation for fall risk and possibly dementia 05/13/2024 Nicotine dependence, cigarettes, in remission (ICD-10 - F17.211) Remains in remission 05/13/2024 Vitamin D deficiency, unspecified (ICD-10 - E55.9) Stable on prior labs reviewed. Would continue vitamin D supplementation for goal level of 30+ and if possible 50+ 07/09/2024 Encounter for screening for malignant neoplasm of colon (ICD-10 - Z12.11) Up-to-date on colon cancer screenings. Patient states she was advised by her resawyer that she no longer has to complete [...] and is up-to-date with breast cancer screenings 05/13/2024 Encounter for immunization (ICD-10 - Z23) 07/09/2024 Encounter for screening for osteoporosis (ICD-10 [...] o further interventions warranted at this time 11/04/2023 Other This note was created with voice dictation recognition software and may contain errors of grammar and syntax. Also labs were reviewed with patient. 05/13/2024 Other This note was created with voice dictation recognition software and may contain errors of grammar and syntax. Also labs were reviewed with patient. 07/09/2024 Other This note was created with voice dictation recognition software and may contain errors of grammar and syntax. Also labs were reviewed with patient. Plan Of Treatment Pending Test Test Name Order Date X ray : Shoulder, left 09/27/2016 COMPREHENSIVE METABOLIC PANEL 09/03/2023 COMPREHENSIVE METABOLIC PANEL 09/02/2023 CBC 11/29/2016 CBC 10/03/2020 CBC 05/28/2016 CBC 07/03/2017 COMPREHENSIVE METABOLIC PANEL 07/03/2017 COMPREHENSIVE METABOLIC PANEL 05/28/2016 COMPREHENSIVE METABOLIC PANEL 10/03/2020 COMPREHENSIVE METABOLIC PANEL 11/29/2016 FERRITIN 08/28/2021 HAPTOGLOBIN 08/28/2021 HEPATITIS C VIRUS SCREEN 08/28/2021 LACTATE DEHYDROGENASE 08/28/2021 LIPID PROFILE 10/03/2020 LIPID PROFILE 11/29/2016 LIPID PROFILE 05/28/2016 LIPID PROFILE 07/03/2017 INTACT PTH 05/28/2016 RETICULOCYTE COUNT 08/28/2021 TOTAL IRON BINDING CAPACITY 08/28/2021 URINALYSIS 11/29/2016 URINALYSIS 05/01/2022 URINALYSIS 10/03/2020 URINALYSIS 05/28/2016 URINALYSIS 07/03/2017 URINALYSIS 07/10/2021 MICROALB/CREAT RATIO, RANDOM 05/28/2016 MICROALB/CREAT RATIO, RANDOM 10/03/2020 MICROALB/CREAT RATIO, RANDOM 07/10/2021 B12 AND FOLATE PROFILE 08/28/2021 VITAMIN D, 25-HYDROXY 11/29/2016 VITAMIN D, 25-HYDROXY 04/05/2021 VITAMIN D, 25-HYDROXY 10/03/2020 VITAMIN D, 25-HYDROXY 05/28/2016 VITAMIN D, 25-HYDROXY 03/31/2020 VITAMIN D, 25-HYDROXY 07/14/2018 VITAMIN D, 25-HYDROXY 07/03/2017 VITAMIN D, 25-HYDROXY 05/01/2022 CR Chest Routine 2 Views 09/05/2017 CT Low Dose Lung Screening 07/09/2024 COLOGUARD 05/01/2022 Urinalysis, Complete-[id number] 07/09/2024 CBC With Differential/Platelet-[id number] Vitamin D, 61-Mcttvqk-[id number] 07/09/2024 Comp. Metabolic Panel [id number] 2023 LP+Non-HDL Cholesterol-857085 07/09/2024 HCV Antibody-[id number] 07/09/2024 Future Test Test Name Order Date MITOCHONDRIAL ANTIBODIES 04/24/2020 ANTI-NUCLEAR ANTIBODY 04/24/2020 COMPREHENSIVE METABOLIC PANEL 04/24/2020 ESR 04/24/2020 IMMUNOFIX SERUM 04/24/2020 SMOOTH MUSCLE AB W TITER 04/24/2020 Next Appt Details Provider Name:Shani Chapman , 08/27/2024 11:15:00 AM, [address] [place] [address], [phone], Provider Name:Shani Chapman , 08/02/2025 09:00:00 AM, [address] [place] [address], [phone], Insurance Providers Payer Name Payer Address Payer Phone Subscriber Number Group Number Insured Name Patient Relationship to Insured Coverage Start Date Coverage End Date [employer] [address] [address] [place] [phone] [id number] Aminta Swain Self - patient is the insured Medications Administered Medication Instructions Date of Administration Dosage Notes Prolia 01/30/2023 60 mg Prolia 09/12/2023 60 mg Prolia 07/02/2022 60 mg mfd by AMGEN Prolia 03/12/2024 60 mg Medical (General) History Medical History History ICD Code Hammer toes Malignant neoplasm of uterus, part unspe cified Other cataract Rib fracture Major depressive disorder, recurrent, in partial remission F33.41 Chronic kidney disease, stage 2 (mild) N 18.2 Age-related osteoporosis without current pathological fracture M81.0 Allergy status to penicillin Z88.0 Personal history of malignant neoplasm o f other parts of uterus Z85.42 Acquired absence of other left toe(s) Z8 9.422 Vitamin D deficiency, unspecified E55.9 Hypertensive chronic kidney disease with stage 1 through stage 4 chronic kidney disease, or unspecified chronic kidney disease I12.9 Nicotine dependence, cigaret marvin, with unspecified nicotine-induced disorders F17.219 Rectal prolapse (resolved 10/03/2020) un defined Wedge compression fracture o f unspecified thoracic vertebra, initial encounter for closed fracture (resolved 09/18/2022) Surgical History Surgery Date(Month/Year) Right Knee Patella Repair 07/19/2015 Amputation of 5th toe 2014 Corrective surgery (hammer toes) 2011 Hysterectomy Perineal Rectosigmoidectomy (Altemeier P rocedure) 05/2020 Hammertoe Correction 10/2020 Vertebra-pasty 06/2022 Hospitalization History Reason Date(Month/Year) Right Patella Fracture 07/18/2015
--- OUTSIDE RECORDS SUMMARY | 2024-08-05 07:03 | XMS_ITS ---
Author Organization Shani Chapman MD Address [address] [place] [address] [phone] Care Team Providers Care Furnace Liner Name Role Phone Shani Chapman Primary Care Provider REASON FOR VISIT CT Lung cancelled Encounters Encounter Location Date Provider Diagnosis Shani Chapman MD [address] [place] [address] [place] [address] [phone] 07/27/2024 Shani Chapman Plan Of Treatment Next Appt Details Provider Name:Shani Chapman , 08/27/2024 11:15:00 AM, [address] [place] [address], [phone], Provider Name:Shani Chapman , 08/02/2025 09:00:00 AM, [address] [place] [address], [phone], Progress Notes * Aminta URBINA WDOB: [birth year] (78 yo F)Acc No.[id number]:07/27/2024 Patient:?Aminta URBINA :1945???Age:78 Y???Sex:Female Address:[address] [place] [address], [phone] * true * Date:? Generated for Printi linda/Arisg/eTransmitting on:?08/05/2024 07:03 AM EST
== END 2024-07-31 09:54 | disposition home or self-care (01) ==
PROVIDERS: PCP Internal Medicine; Visit Provider Surgery
DX: C50.911 Malignant neoplasm of unspecified site of right female breast (principal); D05.11 Intraductal carcinoma in situ of right breast
CPT/HCPCS: 99024

== ENCOUNTER → 2024-07-31 09:36 | Outpatient (BNVA) | payer OTHER, SELFPAY | PROVIDERS: PCP Internal Medicine; Visit Provider Surgery ==

== ENCOUNTER 2025-02-04 09:17 | Outpatient (AMB) | payer OTHER, SELFPAY ==
--- NOTE | 2025-02-04 09:28 | MHC.OFFVIS ---
Vital Signs 02/04/25 09:40 Height 5 ft 5 in Weight 130 lb BMI 21.6 BP 137/69 Blood Pressure Location Lt brachial Position Sitting Pulse 79 Intake Visit Reasons: 6 mths Rt brst lumpectomy w/localizer & Rt SN bx Intake Note: Patient is seen in office for 6 month follow up visit, breast exam. Pt c/o: denies any concerns at the time of visit mm:05/05/24 (DUE Soon) Speech Coach Required: No Server Support Technician: Server Support Technician Present Accompanied by: Spouse Allergies penicillin G Allergy (Mild, Verified 02/04/25 09:40) Rash Medication List - Last Reconciled 02/04/25 by Abdirashid Hudson MD amlodipine 5 mg PO QAM anastrozole (Arimidex) 1 mg PO DAILY aspirin 81 mg PO DAILY bupropion HCl XL 300 mg PO BEDTIME denosumab (Prolia) 60 mg subcut [id number] lamotrigine 200 mg PO QAM lisinopril 40 mg PO QAM rosuvastatin 20 mg PO BEDTIME venlafaxine ER 75 mg PO BEDTIME HPI Comments Details: 79-year-old female patient presenting to the office following an ultrasound-guided core biopsy performed at [facility] on 03/31/2024. Bilateral mammogram on 03/05/2024 followed by diagnostic right mammogram and ultrasound on 03/25/2024 revealed a 0.6 cm round isodense nodule with partial obscured borders in the superior aspect of the right breast approximately 9 cm from the nipple, 11 o'clock position, felt to be suspicious and ultrasound-guided core biopsy recommended (BI-RADS 4). She subsequently underwent ultrasound-guided core biopsy on 03/31/2024. 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 She denies a previous history of breast problems or breast surgery. She denies any breast pain, palpable lump, nipple discharge, skin changes or enlarged lymph nodes. She is 0. Her family history is negative for breast cancer. She presents today to discuss surgical next steps. She underwent right breast lumpectomy with localizer and right axillary sentinel node biopsy on 06/10/2024. Pathology confirmed invasive ductal carcinoma with DCIS, negative margins, 0 of 6 sentinel lymph nodes with metastatic disease, ER/CT positive, HER2 Chelsy negative, Ki-67 high (pT1b pN0). She was evaluated by Dr. Bhakta and the decision made to avoid radiation therapy given her age. She was started on anastrozole and denies any symptoms associated with this. She continues to follow up with Dr. Bhakta. She feels well and denies any ongoing pain at her incisions. She will be due for her annual mammogram on 05/06/2025. [facility] Medical History Basal cell carcinoma Arthritis HTN (hypertension) Osteoporosis Closed fracture of thoracic vertebra Chronic renal insufficiency Depression Hammer toe of second toe of right foot Patella fracture Bipolar 1 disorder Surgical History Status post right breast lumpectomy (06/10/24) H/O colonoscopy Hx of vertebroplasty History of rectal surgery Hx of foot surgery History of amputation of toe Hx of knee surgery H/O: hysterectomy Family History Father Multiple myeloma Social History Household Members: Spouse Are you a primary care information associate to a significant other at home: No Do you presently have visiting nurse or other home services: No Alcohol intake: current Alcohol type: wine Patient Tobacco Use Status: Former Tobacco user Tobacco use type: Cigarette Years Smoked: 57 Substance Use Type: Marijuana service: No Current occupational status: retired Review of Systems Const All systems reviewed & are unremarkable except as noted in HPI and below Physical Exam Vital Signs: Last Vital Signs Pulse 79 02/04/25 09:40 BP 137/69 02/04/25 09:40 BMI result Body Mass Index 21.6 Const General: no acute distress Nutritional Appearance: well nourished Chest Other: Right breast: Incision in the upper outer quadrant right breast is clean, dry, and intact without seroma or hematoma. No palpable masses are noted surrounding the wound. No enlarged lymph nodes are appreciated. Chest/axillae images: 1. Incision right breast upper outer quadrant Resp Effort & Inspection: normal respiratory effort Skin Other: Warm, dry, no rash Neuro Other: Mobility Assessment 1. 3 meter assessment time (seconds) 6 2. Gait observations: Normal balance and gait Assessment & Plan Assessment & Plan (1) Invasive ductal carcinoma of right breast: Code(s): C50.911 - Malignant neoplasm of unspecified site of right female breast Category: Medical (2) Ductal carcinoma in situ of right breast: Code(s): D05.11 - Intraductal carcinoma in situ of right breast Category: Medical Plan 79-year-old female patient status post right breast lumpectomy with sentinel node biopsy for invasive ductal carcinoma with DCIS. She has been evaluated by Medical Oncology and started on anastrozole. Examination today reveals no evidence of recurrent disease. Her wounds are healing nicely. I recommended follow-up examination in approximately 6 months. She is welcome to call sooner for any new concerns. She will continue her follow-up with Dr. Bhakta in Medical Oncology. Orders: Orders MM diagnostic mammo BI 05/06/25 C50.911 - Malignant neoplasm of unspecified site of right female breast, D05.11 - Intraductal carcinoma in situ of right breast Coding Level of Care Code Est Pt Level 3 (64771) Diagnoses Invasive ductal carcinoma of right breast C50.911 Ductal carcinoma in situ of right breast D05.11
[2025-02-04 09:40] VITALS: BP 137/69; PULSE 79; BMI 21.6
--- OUTSIDE RECORDS SUMMARY | 2025-02-04 10:02 | XMS_ITS | Clinical Summary ---
Author Organization [facility] Address [address] [place] [address] Phone Care Team Providers Care Assistant Secretary Name Role Phone Shani Lawler MD Primary Care Provider [phone] Encounters Date Type Department Care Team Description 2024 Telephone [facility] Hematology Oncology [address] [place] [address] Shani Lawler MD 12/03/2024 9:48 AM EDT - 12/03/2024 11:59 PM EDT Hospital Encounter [facility] Ultrasound [address] [place] [address] Nonalcoholic steatohepatitis (CABRERA) Discharge Disposition: Home or Self Care from Last 3 Months Social History Tobacco Use Types Packs/Day Years Used Date Smoking Tobacco: Never Assessed Comments Unknown Sex and Gender Information Value Date Recorded Sex Assigned at Female 11/10/2024 3:46 PM EDT Legal Sex Female 9:44 AM EST Gender Identity Female 11/10/2024 3:46 PM EDT Sexual Orientation Not on file Plan of Treatment Health Maintenance Due Date Last Done Comments COVID-19 Vaccine (#1) 12/29/1950 DTaP,Tdap,and Td Vaccines (1 - Tdap) 12/29/1962 Zoster Vaccines (1 of 2) 12/29/1962 RSV Immunization Adult Patients (1 - 1-dose 75+ series) 12/29/2018 Cholesterol Screening (Lipid Panel) 07/29/2022 Depression Screening 07/29/2022 Falls Risk Assessment 07/29/2022 Medicare Annual Wellness Visit 07/29/2022 Social Influencers of Health Screening 07/29/2022 Hypertension/CHF/CAD Annual BMP Blood Test 08/11/2022 Influenza Vaccine (Season Ended) 2025 07/03/2017 Osteoporosis Screening (Bone Density Screening) 06/06/2032 06/06/2022, 04/20/2020 Pneumococcal Vaccine: 50+ Years Completed 12/19/2016, 02/15/2010 HIB Vaccines Aged Out No longer eligi ble based on patient's age to complete this topic HPV Vaccines Aged Out No longer eligi ble based on patient's age to complete this topic Hepatitis A Vaccines Aged Out No long er eligible based on patient's age to complete this topic Hepatitis B Vaccines Aged Out No long er eligible based on patient's age to complete this topic IPV Vaccines Aged Out No longer eligi ble based on patient's age to complete this topic MMR Vaccines Aged Out No longer eligi ble based on patient's age to complete this topic Meningococcal ACWY Vaccine Aged Out N o longer eligible based on patient's age to complete this topic Meningococcal B Vaccine Aged Out No l onger eligible based on patient's age to complete this topic RSV Immunization Patients Under 20 months Aged Out No longer eligible b ased on patient's age to complete this topic Varicella Vaccines Aged Out No longer eligible based on patient's age to complete this topic Procedures Procedure Name Priority Date/Time Associated Diagnosis Comments US ELASTOGRAPHY PARENCHYMA Routine 12/03/2024 10:09 AM EDT Nonalcoholic steatohepatitis (CABRERA) SARAH DEXA AXIAL SKELETON Routine 06/06/2022 9:31 AM EDT Encounter for screening for osteoporosis from Last 3 Months or Most Recently Relevant to Health Maintenance Results * US Elastography Parenchyma (12/03/2024 10:09 AM EDT) Anatomical Region Laterality Modality Body Ultrasound 12/04/2024 10:2 9 AM EDT Impressions 12/04/2024 10:32 AM EDT Elastography was performed and yields a mean score of 1.42 m/s. This correlates with a Metavir score of F1, normal to mild fibrosis The variability between consecutive liver stiffness acquisitions, assessed by means of the interquartile range?to-median ratio, is the most important quality criterion; when this ratio is higher than 30% for measurements given in kilopascals or higher than 15% for measurements given in meters per second, the accuracy of the technique is reduced. A standard deviation (Std) of 30% or less of the mean value is indicative of an acquisition of good quality. -------- FINAL REPORT -------- Dictated By: Coy Ferro Dictated Date: 12/04/2024 10:29 ET Assigned Physician: Coy Ferro Reviewed and Electronically Signed By: Coy Ferro Signed Date: 12/04/2024 10:32 ET Workstation ID: [id number] Transcribed By: Self Edit Transcribed Date: 12/04/2024 10:29 ET Narrative 12/04/2024 10:32 AM EDT EXAMINATION: HEPATIC ELASTOGRAPHY CLINICAL INFORMATION: Nonalcoholic steatohepatitis. COMPARISON: None. TECHNIQUE: Elastography of the liver was performed. Multiple measurements were obtained targeting areas which exclude large vessels. Shearwave elastography of the liver was performed. Shearwave sampling of the liver was performed multiple times targeting areas which exclude large vessels. FINDINGS: QUALITY: Adequate Elastography Vmean: 1.42 m/s V IQR = 0.16 m/s V IQR/Median = 11% The interquartile range (IQR) contains the second and third quartiles, or the middle half of the data set Normal, F0 ?<1.35m/s Normal to mild, F1 ? 1.35 m/s to 1.66 m/s Mild to moderate, F2 ?1.66 m/s to 1.77 cm/s Moderate to severe, F3 1.77 m/s to 1.99 m/s Cirrhosis, F4 ? >1.99 m/s LIVER: No suspicious focal abnormality in the visualized portions of the liver. Procedure Note Coy Ferro MD - 12/04/2024 EXAMINATION: HEPATIC ELASTOGRAPHY CLINICAL INFORMATION: Nonalcoholic steatohepatitis. COMPARISON: None. TECHNIQUE: Elastography of the liver was performed. Multiple measurements wereobtained targeting areas which exclude large vessels. Shearwave elastography of the liver was performed. Shearwave sampling ofthe liver was performed multiple times targeting areas which exclude largevessels. FINDINGS: QUALITY: Adequate Elastography Vmean: 1.42 m/s V IQR = 0.16 m/s V IQR/Median = 11% The interquartile range (IQR) contains the second and third quartiles, orthe middle half of the data set Normal, F0 <1.35m/s Normal to mild, F1 1.35 m/s to 1.66 m/s Mild to moderate, F2 1.66 m/s to 1.77 cm/s Moderate to severe, F3 1.77 m/s to 1.99 m/s Cirrhosis, F4 >1.99 m/s LIVER: No suspicious focal abnormality in the visualized portions of theliver. IMPRESSION: Elastography was performed and yields a mean score of 1.42 m/s. This correlates with a Metavir score of F1, normal to mild fibrosis The variability between consecutive liver stiffness acquisitions, assessedby means of the interquartile range?to-median ratio, is the most importantquality criterion; when this ratio is higher than 30% for measurementsgiven in kilopascals or higher than 15% for measurements given in metersper second, the accuracy of the technique is reduced. A standard deviation (Std) of 30% or less of the mean value is indicativeof an acquisition of good quality. -------- FINAL REPORT -------- Dictated By: Coy Ferro Dictated Date: 12/04/2024 10:29 ET Assigned Physician: Coy Ferro Reviewed and Electronically Signed By: Coy Ferro Signed Date: 12/04/2024 10:32 ET Workstation ID: [id number] Transcribed By: Self Edit Transcribed Date: 12/04/2024 10:29 ET us Shani Lawler MD IMG US PROCEDURES Final Result * SARAH DEXA AXIAL SKELETON (06/06/2022 9:31 AM EDT) Anatomical Region Laterality Modality Mammography 06/06/2022 8:53 AM EDT Narrative 06/06/2022 9:31 AM EDT [facility] Diagnostic Imaging Department [address] [place] [id number] Patient: ??ALEXANDERDUNCANANDERSBOBBI ?/Age/Sex: 1945 - 76 - F Unit#: ??[id number] ? Location/Status: ??SPDIMAM/REG CLI ? Mnemonic/Ordering Site: ??MAMDEXAAX/SPMAM Ordering Physician: ??SHANI LAWLER MD [facility] Dexa Axial Skeleton - 06/06/22922 HISTORY: ??The patient is a 76-year-old postmenopausal female with clinical concern for metabolic bone disease. FINDINGS: ??Dual energy x-ray absorptiometry of the lumbar spine and femurs is performed. The mean bone mineral density at L1-2 is 0.852 gm/cm2 which is 73% of that of young normals and 90% of that of age matched controls. This yields a T- score of -2.6 and a Z-score of -0.7 which is diagnostic of osteoporosis. The mean bone mineral density of the femurs bilaterally is 0.830 gm/cm2 which is 82% of that of young normals and 109% of that of age matched controls. ??This yields a T-score of -1.4 and a Z-score of 0.5 which is diagnostic of osteopenia. The T-score of the right femoral neck is -2.1 and that of the left femoral neck is -2.3 which is diagnostic of osteopenia. IMPRESSION: 1. Osteoporosis. ??There has been a decrease of 2.1% in bone mineral density in the lumbar spine since the prior examination of 04/20/2020. ??There has been a decrease of 0.5% in bone mineral density in the right femur and a decrease of 0.6% in bone mineral density in the left femur. 2. FRAX analysis yields a 10-year probability of major osteoporotic fracture of 22.5% and a 10-year probability of hip fracture of 6.2%. Code 78919 Dictating Physician: ??JOHN TURNER MD Electronically Signed by: ??JOHN TURNER MD Dic Date/Time: ??06/06/22929 Sign date/Time: ??06/06/22930 Procedure Note John Turner MD - 08/15/2022 [facility] Diagnostic Imaging Department [address] [place], [place] [id number] Patient: AUSTINBOBBI Ling D.O.B./Age/Sex: 1945 - 76 -F Unit#: [id number] Location/Status: [facility] Mnemonic[facility] Ordering Physician: SHANI LAWLER MD [facility] Dexa Axial Skeleton - 06/06/22922 HISTORY: The patient is a 76-year-old postmenopausal female withclinical concern for metabolic bone disease. FINDINGS: Dual energy x-ray absorptiometry of the lumbar spine and femursis performed. The mean bone mineral density at L1-2 is 0.852 gm/cm2 which is73% of that of young normals and 90% of that of age matched controls. This yieldsa T- score of -2.6 and a Z-score of -0.7 which is diagnostic of osteoporosis. The mean bone mineral density of the femurs bilaterally is 0.830 gm/cg2mcocf is 82% of that of young normals and 109% of that of age matched controls.This yields a T-score of -1.4 and a Z-score of 0.5 which is diagnostic ofosteopenia. The T-score of the right femoral neck is -2.1 and that of the left femoralneck is -2.3 which is diagnostic of osteopenia. IMPRESSION: 1. Osteoporosis. There has been a decrease of 2.1% in bone mineraldensity in the lumbar spine since the prior examination of 04/20/2020. There has ryley decrease of 0.5% in bone mineral density in the right femur and a decreaseof 0.6% in bone mineral density in the left femur. 2. FRAX analysis yields a 10-year probability of major osteoporoticfracture of 22.5% and a 10-year probability of hip fracture of 6.2%. Code 67285 Dictating Physician: JOHN TURNER MD Electronically Signed by: JOHN TURNER MD Dic Date/Time: 06/06/22929 Sign date/Time: 06/06/22930 Shani Lawler MD IM BI PROCEDURES Final Result from Last 3 Months or Most Recently Relevant to Health Maintenance Insurance [employer] MED[employer]ARE Care Teams Assistant Secretary Relationship Specialty Start Date End Date Shani Lawler MD PCP - General Internal Medicine 10/13/13
== END 2025-02-04 09:43 | disposition home or self-care (01) ==
LOC: HO.HGS 09:18
PROVIDERS: PCP Internal Medicine; Visit Provider Surgery
DX: C50.411 Malignant neoplasm of upper-outer quadrant of right female breast (principal)
CPT/HCPCS: 99213

== ENCOUNTER → 2025-02-04 09:17 | Outpatient (BNVA) | payer MEDICARE, SELFPAY | PROVIDERS: PCP Internal Medicine; Visit Provider Surgery | DX: C50.911 Malignant neoplasm of unspecified site of right female breast (principal); D05.11 Intraductal carcinoma in situ of right breast ==

== ENCOUNTER 2025-05-12 12:16 | Outpatient (REF) | payer MEDICARE, SELFPAY ==
--- NOTE | ~2025-05-12 | MM_ITS ---
EXAMINATION: MM DIAGNOSTIC DIGITAL BREAST TOMOSYNTHESIS, BILATERAL Limited right breast ultrasound. CLINICAL INFORMATION: History of right breast cancer 2023 status post lumpectomy. COMPARISON: Mammography: Comparison is made with relevant prior exams. TECHNIQUE: Digital breast mammography with tomosynthesis is performed in both the craniocaudal and mediolateral oblique views along with computer-aided detection (CAD). FINDINGS: There are scattered areas of fibroglandular density (ACR BI-RADS breast composition Category b). Left: There are no significant masses, abnormal calcifications, or other abnormalities. Right: Postoperative changes in the upper outer quadrant. Circumscribed oval mass in the upper-outer breast with morphology of a lymph node slightly increased from prior. This could represent post surgical changes and reactive lymph node. Targeted color Doppler ultrasound in the upper outer right breast demonstrates at 10:00 7 cm from the nipple is a normal-appearing intramammary lymph node. Results are provided to the patient at time of visit by the technologist. MM/MM tomosynthesis diagnostic BI IMPRESSION: Left: Negative. Right: Postoperative changes. Lymph node in the upper outer breast slightly increased from prior mammograms appears benign and may be slightly prominent on ultrasound. Recommend six-month follow-up for further evaluation of stability. ASSESSMENT: BI-RADS BI-RADS 3 - Probably benign finding(s) - 6 month follow-up suggested RECOMMENDATION: 6 Month F/U This patient's information was entered into a reminder system with a target due date for their next mammogram. Electronically signed by: Kayla Escalante DO 05/12/2025 02:13 PM EDT
--- OUTSIDE RECORDS SUMMARY | 2025-05-12 15:43 | XMS_ITS | Patient Health Record ---
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 Role Phone [facility] Primary Care Provider [phone] Pari Martinez Unavailable [phone] Allergies Allergen (clinical drug ingredient) Drug/Non Drug Allergy documented on EMR Reaction Allergy Type Onset Date Status penicillin G Penicillin G Sodium rash Drug Allergy Active Results Component Value Reference Range Notes Urinalysis, Complete-[id number] Reviewed date:05/14/2024 05:06:08 PM Interpretation: Performing Lab:[facility] Alberts, [employer] [facility], [place], Phone - [phone], Director - Suzie Notes/Report: Clinical Information:SRC: Clinical Information:SRC: Specific [place] 1.026 1.005-1.030 pH 6.0 5.0-7.5 Urine-Color Yellow [...] None seen None seen/Few CBC With Differential/Platel et-152542 Reviewed date:05/14/2024 05:06:08 PM Interpretation: Performing Lab:[employer] [place], [employer] [facility], Phone - [phone], Director - Suzie Notes/Report: Clinical Information:SRC: WBC [...] Grans (Abs) 0.0 0.0-0.1 x10E3/uL Vitamin D, 74-[id number] Reviewed date:05/14/2024 05:06:08 PM Interpretation: Performing Lab:[facility] [place], [address] [place] [address], Phone - [phone], Director - Suzie Notes/Report: Clinical Information:SRC: Vitamin D, 25-Hydroxy 50.8 30.0-100.0 ng/mL Vitamin D deficiency has been defined by the [place] of [place] and an Endocrine Society practice guideline as a level of serum 25-OH vitamin D less than 20 ng/mL (1,2). The Endocrine Society went on to further define vitamin D insufficiency as a level between 21 and 29 ng/mL (2). 1. IOM ([place] of [place]). 2010. Dietary reference intakes for calcium and D. [place]: The National Academies Press. 2. Lizbeth MF, Suzie NC, Adilene BENAVIDEZ, et al. Evaluation, treatment, and prevention of vitamin D deficiency: an Endocrine Society clinical practice guideline. JCEM. 2010; 96(7):1911-30. Albumin/Creatinine Ratio,Uri ne-[id number] Reviewed date:05/14/2024 05:06:08 PM Interpretation: Performing Lab:Genia Alberts, [address] [facility], [place], Phone - [phone], Director - Suzie Notes/Report: Clinical Information:SRC: Creatinine, Urine 119.4 Not Estab. mg/dL Albumin, Urine 35.0 Not Estab. ug/mL Alb/Creat Ratio 29 0-29 mg/g creat Normal: 0 - 29 Moderately increased: 30 - 300 Severely increased: >300 Comp. Metabolic Panel (14)-3 Reviewed date:05/14/2024 05:06:08 PM Interpretation: Performing Lab:Genia Alberts, [address] [facility], Phone - [phone], Director - Suzie Notes/Report: Clinical Information:SRC: Glucose [...] 0-40 IU/L ALT (SGPT) 35 0-32 IU/L Hemoglobin [id number]-[id number] Reviewed date:11/09/2024 05:08:49 AM Interpretation: Performing Lab:Genia Alberts, [address] [facility], [place], Phone - [phone], Director - Suzie Notes/Report: Hemoglobin A1c 6.0 4.8-5.6 % . Prediabetes: 5.7 - 6.4 Diabetes: >6.4 Glycemic control for adults with diabetes: <7.0 Vitamin [id number] Reviewed date:11/09/2024 05:08:49 AM Interpretation: Performing Lab:[address], Phone - [phone], [facility] Notes/Report: Vitamin B12 [phone] pg/mL Folate (Folic Acid), Serum-0 80800 Reviewed date:11/09/2024 05:08:49 AM Interpretation: Performing Lab:[facility] [address], Phone - [phone], Director - dry Notes/Report: Folate (Folic Acid), Serum >20.0 >3.0 ng/mL A serum folate concentration of less than 3.1 ng/mL is considered to represent clinical deficiency. CBC With Differential/Platel et-[id number] Reviewed date:11/09/2024 05:08:49 AM Interpretation: Performing [facility], [address] [place] [address], Phone - [phone], Director - Suzie Notes/Report: WBC 4.1 3.4-10.8 x10E3/uL RBC 3.56 3.77-5.28 x10E6/uL Hemoglobin 11.9 11.1-15.9 g/dL Hematocrit 36.4 34.0-46.6 % MCV 102 79-97 fL MCH 33.4 26.6-33.0 pg MCHC 32.7 31.5-35.7 g/dL RDW 12.2 11.7-15.4 % Platelets 280 150-450 x10E3/uL Neutrophils 51 Not Estab. % Lymphs 31 Not Estab. % Monocytes 16 Not Estab. % Eos 1 Not Estab. % Basos 1 Not Estab. % Neutrophils (Absolute) 2.2 1.4-7.0 x10E3/uL Lymphs (Absolute) 1.3 0.7-3.1 x10E3/uL Monocytes(Absolute) 0.6 0.1-0.9 x10E3/uL Eos (Absolute) 0.0 0.0-0.4 x10E3/uL Baso (Absolute) 0.0 0.0-0.2 x10E3/uL Immature Granulocytes 0 Not Estab. % Immature Grans (Abs) 0.0 0.0-0.1 x10E3/uL Reticulocyte Count-[id number] Reviewed date:11/09/2024 05:08:49 AM Interpretation: Performing Lab:[facility] Alberts, [address] [place] [address], Phone - [phone], Director - Suzie Notes/Report: Reticulocyte Count 0.8 0.6-2.6 % Vitamin D, 22-Wejjbmw-[id number] Reviewed date:11/09/2024 05:08:49 AM Interpretation: Performing Lab:[facility] [place], [address] [place] [address], Phone - [phone], Director - Suzie Notes/Report: Vitamin D, 25-Hydroxy 57.3 30.0-100.0 ng/mL Vitamin D deficiency has been defined by the [place] and an Endocrine Society practice guideline as a level of serum 25-OH vitamin D less than 20 ng/mL (1,2). The Endocrine Society went on to further define vitamin D insufficiency as a level between 21 and 29 ng/mL (2). 1. IOM ([place]). 2010. Dietary reference intakes for calcium and D. [place]: The National Academies Press. 2. Lizbeth MF, Suzie NC, Adilene BENAVIDEZ, et al. Evaluation, treatment, and prevention of vitamin D deficiency: an Endocrine Society clinical practice guideline. JCEM. 2011 Feb; 96(7):1911-30. Comp. Metabolic Panel (14)-3 05519 Reviewed date:11/09/2024 05:08:49 AM Interpretation: Performing Lab:[facility] Alberts, [address] [place] [address], Phone - [phone], Director - Suzie Notes/Report: Glucose 98 70-99 mg/dL BUN 16 8-27 mg/dL Creatinine 0.91 0.57-1.00 mg/dL eGFR 64 >59 mL/min/1.73 BUN/Creatinine Ratio 18 12-28 Sodium 140 134-144 mmol/L Potassium 4.6 3.5-5.2 mmol/L Chloride 99 96-106 mmol/L Carbon Dioxide, Total 27 20-29 mmol/L Calcium 9.8 8.7-10.3 mg/dL Protein, Total 6.8 6.0-8.5 g/dL Albumin 4.3 3.8-4.8 g/dL Globulin, Total 2.5 1.5-4.5 g/dL Bilirubin, Total 0.4 0.0-1.2 mg/dL Alkaline Phosphatase 109 44-121 IU/L AST (SGOT) 27 0-40 IU/L ALT (SGPT) 36 0-32 IU/L LP+Non-HDL Cholesterol-32060 5 Reviewed date:11/09/2024 05:08:49 AM Interpretation: Performing Lab:[facility] [place], [employer] [facility], Phone - [phone], Director - MDJodry Notes/Report: Cholesterol, Total 172 100-199 mg/dL Triglycerides 65 0-149 mg/dL HDL Cholesterol 73 >39 mg/dL VLDL Cholesterol Alfa 13 5-40 mg/dL LDL Chol Calc (NIH) 86 0-99 mg/dL Non-HDL Cholesterol 99 0-129 mg/dL FIB-4 w/Rx CABRERA [facility] [address] -[id number] Reviewed date:11/09/2024 05:08:49 AM Interpretation: Performing Lab:LabWestinghouse Electric Corporationshivani Alberts, [employer] [facility], [place], Phone - [phone], Director - MDJodry Notes/Report: FIB-4 Index 1.29 0.00-2.67 0.00 - 1.29 Low risk for advanced liver fibrosis 1.30 - 2.67 Indeterminate risk for advanced liver fibrosis >2.67 High risk for advanced fibrosis and for the development of other liver related events Phosphatidylethanol (PEth)-7 94889 Reviewed date:11/09/2024 05:08:49 AM Interpretation: Performing Lab:[facility] [place], [employer] [facility], Phone - [phone], Director - MDJodry Notes/Report: PHOSPHATIDYLETHANOL Positive Phosphatidylethanol (PEth) 48 Analyzed compound: PEth 16:0/18:1. 2-thdjlryou-5-oleoyl-sn-g kxaltg-4-pwsecbhajcpsqp. Analysis performed by Liquid Chromatography with Tandem Mass Spectrometry (LC/MS/MS). Detection limit: 20 ng/mL PEth levels in excess of 20 ng/mL are considered evidence of moderate to heavy ethanol consumption. However, the Center for Substance Abuse Treatment (CSAT) advises caution in interpretation and use of biomarkers alone to assess alcohol use. Results should be interpreted in the context of all available clinical and behavioral information. Reference: Substance Abuse and Mental Health Services Administration (2012). The Role of Biomarkers in the Treatment of Alcohol Use Disorders , 2012 Revision. Advisory, Volume 11, Issue 2. This test was developed and its performance characteristics determined by [employer]. It has not been cleared or approved by the Food and Drug Administration. Hemoglobin [id number]-[id number] Reviewed date:03/05/2025 04:06:37 PM Interpretation: Performing Lab:[address], Phone - [phone], Director - Suzie Notes/Report: Hemoglobin A1c 5.8 4.8-5.6 % . Prediabetes: 5.7 - 6.4 Diabetes: >6.4 Glycemic control for adults with diabetes: <7.0 Immunofixation, Serum-[id number] Reviewed date:03/05/2025 04:06:37 PM Interpretation: Performing Lab:[facility], [address] [place] [address], Phone - [phone], Director - Suzie Notes/Report: Immunofixation Result, Serum The immunofixation pattern appears unremarkable. Evidence of monoclonal protein is not apparent. Immunoglobulin G, Qn, Serum 263 094-7526 mg/d L Immunoglobulin A, Qn, Serum 351 64-422 mg/dL Immunoglobulin M, Qn, Serum 126 26-217 mg/dL Urinalysis, Complete-038820 Reviewed date:03/05/2025 04:06:37 PM Interpretation: Performing Lab:[facility], [address] [place] [address], Phone - [phone], Director - Suzie Notes/Report: Specific [place] 1.019 1.005-1.030 pH 7.0 5.0-7.5 Urine-Color Yellow Yellow Appearance Clear Clear WBC Esterase Trace Negative Protein 1+ Negative/Trace Glucose Negative Negative Ketones Negative Negative [...] seen /lpf Bacteria None seen None seen/Few Vitamin D, 63-Babxvtu-572932 Reviewed date:03/05/2025 04:06:38 PM Interpretation: Performing Lab:[employer] [place], [address] [place] [address], Phone - [phone], Director - Suzie Notes/Report: Vitamin D, 25-Hydroxy 50.2 30.0-100.0 ng/mL Vitamin D deficiency has been defined by the [place] and an Endocrine Society practice guideline as a level of serum 25-OH vitamin D less than 20 ng/mL (1,2). The Endocrine Society went on to further define vitamin D insufficiency as a level between 21 and 29 ng/mL (2). 1. IOM ([place]). 2010. Dietary reference intakes for calcium and D. [place]: The National Academies Press. 2. Lizbeth MF, Suzie AMBROSIO, Adilene BENAVIDEZ, et al. Evaluation, treatment, and prevention of vitamin D deficiency: an Endocrine Society clinical practice guideline. JCEM. 2010; 96(7):1911-30. Albumin/Creatinine Ratio,[facility] ne-019906 Reviewed date:03/05/2025 04:06:38 PM Interpretation: Performing Lab:[employer] [place], [address] [place] [address], Phone - [phone], Director - Suzie Notes/Report: Creatinine, Urine 68.5 Not Estab. mg/dL Albumin, Urine 28.4 Not Estab. ug/mL Alb/Creat Ratio 41 0-29 mg/g creat Normal: 0 - 29 Moderately increased: 30 - 300 Severely increased: >300 Comp. Metabolic Panel (14)-3 Reviewed date:03/05/2025 04:06:38 PM Interpretation: Performing Lab:[facility] [place], [address] [place] [address], [place], Phone - [phone], Director - Suzie Notes/Report: Glucose 91 70-99 mg/dL BUN 15 8-27 mg/dL Creatinine 0.73 0.57-1.00 mg/dL eGFR 83 >59 mL/min/1.73 BUN/Creatinine Ratio 21 12-28 Sodium 138 134-144 mmol/L Potassium 4.8 3.5-5.2 mmol/L Chloride 99 96-106 mmol/L Carbon Dioxide, Total 23 20-29 mmol/L Calcium 9.8 8.7-10.3 mg/dL Protein, Total 7.1 6.0-8.5 g/dL Albumin 4.5 3.7-4.7 g/dL Globulin, Total 2.6 1.5-4.5 g/dL Bilirubin, Total 0.2 0.0-1.2 mg/dL Alkaline Phosphatase 111 44-121 IU/L AST (SGOT) 31 0-40 IU/L ALT (SGPT) 37 0-32 IU/L LP+Non-HDL Cholesterol-69351 5 Reviewed date:03/05/2025 04:06:38 PM Interpretation: Performing Lab:[facility] [place], [address] [facility], [place], Phone - [phone], Director - Suzie Notes/Report: Cholesterol, Total 161 100-199 mg/dL Triglycerides 74 0-149 mg/dL HDL Cholesterol 70 >39 mg/dL VLDL Cholesterol Alfa 14 5-40 mg/dL LDL Chol Calc (NIH) 77 0-99 mg/dL Non-HDL Cholesterol 91 0-129 mg/dL US ELASTOGRAPHY LIVER Reviewed date:12/08/2024 03:26:39 PM Interpretation: Performing Lab: Notes/Report: US ELASTOGRAPHY PARENCHYMA Reviewed date:12/08/2024 06:29:56 PM Interpretation: Performing Lab: Notes/Report: See Note [facility], a member of [employer] EXAMINATION: HEPATIC ELASTOGRAPHY CLINICAL INFORMATION: Nonalcoholic steatohepatitis. [...] in the visualized portions of the liver. IMPRESSION: Elastography was performed and yields a [...] Dictated Date: 12/04/2024 10:29 ET Assigned Physician: oCy Ferro Reviewed and Electronically Signed By: Coy Ferro Signed Date: 12/04/2024 10:32 ET Workstation ID: [id number] Transcribed By: Self Edit Transcribed Date: 12/04/2024 10:29 ET Comp. Metabolic Panel (14)-3 42484 (Not yet reviewed by provider) Interpretation: Performing Lab:[facility] [place], [address] [place] [address], [place], Phone - [phone], Director - Suzie Notes/Report: Glucose 97 70-99 mg/dL BUN 16 8-27 mg/dL Creatinine 0.84 0.57-1.00 mg/dL eGFR 70 >59 mL/min/1.73 BUN/Creatinine Ratio 19 12-28 Sodium 140 134-144 mmol/L Potassium 4.4 3.5-5.2 mmol/L Chloride 99 96-106 mmol/L Carbon Dioxide, Total 25 20-29 mmol/L Calcium 9.6 8.7-10.3 mg/dL Protein, Total 6.7 6.0-8.5 g/dL Albumin 4.3 3.7-4.7 g/dL Globulin, Total 2.4 1.5-4.5 g/dL Bilirubin, Total 0.3 0.0-1.2 mg/dL Alkaline Phosphatase 105 48-129 IU/L Pleas e note reference interval change AST (SGOT) 21 0-40 IU/L ALT (SGPT) 34 0-32 IU/L Hemoglobin [id number] Reviewed date:08/28/2024 03:32:52 PM Interpretation: Performing Lab:[facility] [place], [address] [place] [address], Phone - [phone], Director - Suzie Notes/Report: Hemoglobin A1c 5.8 4.8-5.6 % . Prediabetes: 5.7 - 6.4 Diabetes: >6.4 Glycemic control for adults with diabetes: <7.0 Urinalysis, Complete-[id number] Reviewed date:08/28/2024 03:32:52 PM Interpretation: Performing Lab:[facility] [place], [address] [place] [address], Phone - [phone], Director - Suzie Notes/Report: Specific [place] 1.022 1.005-1.030 pH 6.5 5.0-7.5 Urine-Color Yellow Yellow Appearance Clear Clear WBC Esterase Negative Negative Protein Trace Negative/Trace Glucose Negative Negative Ketones Negative Negative Occult Blood Negative Negative Bilirubin Negative Negative Urobilinogen,Semi-Qn 0.2 0.2-1.0 mg/dL Nitrite, Urine Negative Negative Microscopic Examination Micr oscopic follows if indicated. Microscopic Examination See below: Micr oscopic was indicated and was performed. WBC 6-10 0 - 5 /hpf RBC None seen 0 - 2 /hpf Epithelial Cells (non renal) 0-10 0 - 10 /hpf Casts None seen None seen /lpf Bacteria None seen None seen/Few Vitamin D, 55-[id number]-[id number] Reviewed date:08/28/2024 03:32:52 PM Interpretation: Performing Lab:[facility], [address] [place] [address], Phone - [phone], Director - Suzie Notes/Report: Vitamin D, 25-Hydroxy 53.9 30.0-100.0 ng/mL Vitamin D deficiency has been defined by the [place] and an Endocrine Society practice guideline as a level of serum 25-OH vitamin D less than 20 ng/mL (1,2). The Endocrine Society went on to further define vitamin D insufficiency as a level between 21 and 29 ng/mL (2). 1. IOM ([place]). 2010. Dietary reference intakes for calcium and D. [place]: The National Academies Press. 2. Lizbeth MF, Suzie NC, Aidlene BENAVIDEZ, et al. Evaluation, treatment, and prevention of vitamin D deficiency: an Endocrine Society clinical practice guideline. JCEM. 2010; 96(7):1911-30. Albumin/Creatinine Ratio,Uri ne-204183 Reviewed date:08/28/2024 03:32:52 PM Interpretation: Performing Lab:Genia Alberts, [address] [place] [address], Phone - [phone], Director - MDJodry Notes/Report: Creatinine, Urine 68.5 Not Estab. mg/dL Albumin, Urine 22.0 Not Estab. ug/mL Alb/Creat Ratio 32 0-29 mg/g creat Normal: 0 - 29 Moderately increased: 30 - 300 Severely increased: >300 Comp. Metabolic Panel (14)-3 Reviewed date:08/28/2024 03:32:52 PM Interpretation: Performing Lab:Genia Alberts, [address] [place] [address], Phone - [phone], Director - MDMyrtledry Notes/Report: Glucose 81 70-99 mg/dL BUN 19 8-27 mg/dL Creatinine 0.81 0.57-1.00 mg/dL eGFR 73 >59 mL/min/1.73 BUN/Creatinine Ratio 23 12-28 Sodium 139 134-144 mmol/L Potassium 4.8 3.5-5.2 mmol/L Chloride 98 96-106 mmol/L Carbon Dioxide, Total 27 20-29 mmol/L Calcium 10.1 8.7-10.3 mg/dL Protein, Total 7.1 6.0-8.5 g/dL Albumin 4.6 3.8-4.8 g/dL Globulin, Total 2.5 1.5-4.5 g/dL Bilirubin, Total 0.3 0.0-1.2 mg/dL Alkaline Phosphatase 100 44-121 IU/L AST (SGOT) 33 0-40 IU/L ALT (SGPT) 48 0-32 IU/L LP+Non-HDL Cholesterol-70686 5 Reviewed date:08/28/2024 03:32:52 PM Interpretation: Performing Lab:Genia Alberts, [facility], [place], Phone - [phone], Director - MDJodry Notes/Report: Cholesterol, Total 198 100-199 mg/dL Triglycerides 93 0-149 mg/dL HDL Cholesterol 73 >39 mg/dL VLDL Cholesterol Alfa 17 5-40 mg/dL LDL Chol Calc (NIH) 108 0-99 mg/dL Non-HDL Cholesterol 125 0-129 mg/dL Reason For Referral No Information Medications Medication SIG (Take, Route, Frequency, Duration) Notes Start Date End Date Status Senokot 8.6 MG 2 tablets at bedtime as needed Orally Once a day; Duration: 30 day(s) Active buPROPion HCl ER (XL) 300 MG TAKE 1 TABLET BY MOUTH EVERY DAY THE MORNING Orally Once a day; Duration: 90 days Active Venlafaxine HCl ER 75 MG TAKE 1 CAPSULE BY MOUTH DAILY WITH FOOD; Duration: 30 Active amLODIPine Besylate 10 MG 1 tablet Orall y Once a day; Duration: 30 days Active Anastrozole 1 MG 1 tablet Orally Once a day; Duration: 30 day(s) Active Reclast 5 MG/100ML as directed Intravenous 025 Active lamoTRIgine 200 MG TAKE 1 TABLET BY GIRISH TH DAILY; Duration: 90 Active Aspirin 81 MG 1 tablet Orally Once a day Active Prolia 60 MG/ML as directed Subcutan eous Every 26 weeks 04/05/2025 Active Rosuvastatin Calcium 20 MG TAKE 1 TABLET BY MOUTH ONCE DAILY; Duration: 100 Active Lisinopril 40 MG TAKE 1 TABLET BY GIRISH TH ONCE DAILY; Duration: 100 Active Immunizations Vaccine Route Administration Date Status Comme nts Influenza Unknown 10/05/2020 Administered Zoster Unknown 12/17/2012 Administered Td (adult) preservative free IM Intramuscular 04/07/2020 Administered Td (adult) preservative free Unknown 08/23/2010 Administered Td (adult) preservative free Unknown 06/06/2000 Administered RSV Unknown 05/29/2023 Administered Pneumococcal polysaccharide PPV23 Unknown 02/15/2010 Administered Pneumococcal polysaccharide PCV 13 Unknown 12/19/2016 Administered Per Jesse torrse at [facility] Raxxmleml-Mshpwpckh-D ial IM Intramuscular 06/03/2018 Administered Influenza-Afluria (IIV4) IM Intramuscular 07/03/2017 Administered *Influenza, High Dose Seasonal, Quadrivatent Unknown 05/13/2020 Administered *Xjhkkancv-Icrclwv-Yu gh Dose-65+ Unknown 04/28/2024 Administered *PREVNAR 20 IM Intramuscular 05/13/2024 Administered COVID 19 (Pfizer 12+) Unknown 12/07/2021 Administered COVID COMIRNATY Pfizer Unknown 04/28/2024 Administered COVID COMIRNATY Pfizer Unknown 05/21/2023 Administered COVID-19 Pfizer BiValent Booster Unknown 05/07/2022 Administered YPYCE-78-Haasuq Vaccine Unknown 06/05/2021 Administered EPNXG-16-Hhgcbb Vaccine Unknown 10/26/2020 Administered JJKHD-36-Nxgpib Vaccine Unknown 10/05/2020 Administered Influenza, high dose seasonal Unknown 05/29/2019 Administered Influenza (Fluad) Unknown 05/21/2023 Administered Influenza (Fluad) Unknown 06/07/2022 Administered Influenza (Fluad) Unknown 05/16/2021 Administered Influenza IM Intramuscular 05/28/2016 Administered Social History Tobacco Use: Social History [...] Status Risk Notes Problem Malignant neoplasm of upper-outer quadrant of female breast (350789491) 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) Active confirmed Problem Malignant neoplasm of female breast (874356541) Malignant neoplasm of unspecified site of unspecified female breast (C50.919) Active confirmed Problem Vitamin D deficiency (02403028) Vitamin D deficiency, unspecified (E55.9) Active confirmed Problem Mixed hyperlipidemia (935975016) Mixed hyperlipidemia (E78.2) Active confirmed Problem Tobacco user (163613276) Nicotine dependence, cigarettes, in remission (F17.211) Active confirmed Problem Recurrent major depression in remission (14641689) Major depressive disorder, recurrent, in partial remission (F33.41) Active confirmed Problem Chronic kidney disease due to hypertension (989147542780104) Hypertensive chronic kidney disease with stage 1 through stage 4 chronic kidney disease, or unspecified chronic kidney disease (I12.9) Active confirmed Problem CABRERA - Nonalcoholic steatohepatitis (584243496) Nonalcoholic steatohepatitis (CABRERA) (K75.81) Active confirmed Problem Age-related osteoporosis (444533134) Age-related osteoporosis without current pathological fracture (M81.0) Active confirmed Problem Chronic kidney disease stage 2 (747672335) Chronic kidney disease, stage 2 (mild) (N18.2) Active confirmed Problem Personal history of primary malignant neoplasm of female genital organ (683118389) Personal history of malignant neoplasm of other parts of uterus (Z85.42) Active confirmed Problem Allergy to penicillin (14818422) Allergy status to penicillin (Z88.0) Active confirmed Problem Absence of toe (019603630) 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) Active confirmed Problem Prediabetes (812339304) Prediabetes (R73.03) Active confirmed Problem Hepatic fibrosis (disorder) (86573222) Hepatic fibrosis, 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) Active confirmed Problem Mental disorder caused by drug (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) Nicotine dependence, cigarettes, with unspecified nicotine-induced disorders (F17.219) Inactive confirmed Problem Closed fracture thoracic vertebra, wedge (disorder) (216935694) Wedge compression fracture of unspecified thoracic vertebra, initial encounter for closed fracture (S22.000A) Problem resolved confirmed Vital Signs Heart Rate 89 /min 11/02/2024 Temperature 97.3 degrees Fahrenheit 03/02/2025 Blood pressure diastolic 58 mm Hg 03/02/2025 Oximetry 98 % 11/02/2024 Height 5 ft 4 in in 03/02/2025 Blood pressure systolic 104 mm Hg 03/02/2025 Weight 131 lbs 03/02/2025 BMI 22.48 kg/m2 03/02/2025 Encounters Encounter Location Date Provider Diagnosis Shani Chapman MD [address] [id number] 05/18/2024 Shani Chapman MD [address] [id number] 07/27/2024 Shani Chapman MD [address] [id number] 08/12/2024 Shani Chapman MD [address] [id number] 08/31/2024 Shani Chapman Hypertensive chronic kidney disease with stage 1 through stage 4 chronic kidney disease, or unspecified chronic kidney disease I12.9 [facility] [address] [place] [address] [id number] 11/04/2024 [facility] [address] [place] [address] [id number] 11/09/2024 Shani Chapman Nonalcoholic steatohepatitis (CABRERA) K75.81 Sh[facility] [address] [place] [address] [id number] 11/09/2024 Shani Chapman MD [facility] [address] [place] [address] [id number] 11/10/2024 Shani Chapman MD PC [address] [facility] [address] [place] [address] [id number] 11/12/2024 Shani Chapman MD [facility] [address] [facility] [address] [place] [address] [id number] 11/18/2024 Shani Chapman MD [facility] [address] [place] [address] [id number] 11/25/2024 Shani Chapman Age-related osteoporosis without current pathological fracture M81.0 Shani Chapman MD [facility] [address] [place] [address] [id number] 12/07/2024 Sh[facility] [address] [facility] [address] [place] [address] [id number] 01/04/2025 Shani Chapman MD PC [address] [place] [address] [id number] 03/05/2025 Shani Chapman MD PC [address] [place] [id number] 03/23/2025 Shani Chapman MD [facility] [address] [place] [address] [id number] 03/29/2025 Shani Chapman MD PC [address] [facility] [address] [place] [address] [id number] 04/19/2025 Shani Chapman Hypertensive chronic kidney disease with stage 1 through stage 4 chronic kidney disease, or unspecified chronic kidney disease I12.9 Shani Chapman MD [facility] [address] [place] [address] [id number] 05/04/2025 Shani Chapman Age-related osteoporosis without current pathological fracture M81.0 Shani Chapman MD [address] [id number] 05/15/2024 Shani Chapman MD [address] [id number] 08/27/2024 Lonnyadrianna Chapman Hypertensive chronic kidney disease with stage 1 through stage 4 chronic kidney disease, or unspecified chronic kidney disease I12.9 ; Chronic kidney disease, stage 2 (mild) N18.2 ; Mixed hyperlipidemia E78.2 ; Major depressive disorder, recurrent, in partial remission F33.41 ; Age-related osteoporosis without current pathological fracture M81.0 ; Malignant neoplasm of upper-outer quadrant of right female breast C50.411 ; Nicotine dependence, cigarettes, in remission F17.211 ; Vitamin D deficiency, unspecified E55.9 ; Elevation of levels of liver transaminase levels R74.01 and Other abnormal glucose R73.09 Shani Chapman MD [address] [id number] 11/02/[facility] chronic kidney disease with stage 1 through stage 4 chronic kidney disease, or unspecified chronic kidney disease I12.9 ; Chronic kidney disease, stage 2 (mild) N18.2 ; Mixed hyperlipidemia E78.2 ; Major depressive disorder, recurrent, in partial remission F33.41 ; Age-related osteoporosis without current pathological fracture M81.0 ; Malignant neoplasm of upper-outer quadrant of right female breast C50.411 ; Nonalcoholic steatohepatitis (CABRERA) K75.81 ; Prediabetes R73.03 ; Other megaloblastic anemias, 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 ; Nicotine dependence, cigarettes, in remission F17.211 and Vitamin D deficiency, unspecified E55.9 Shani Chapman MD [address] [id number] 03/02/2025 [facility] Hypertensive chronic kidney disease with stage 1 through stage 4 chronic kidney disease, or unspecified chronic kidney disease I12.9 ; Chronic kidney disease, stage 2 (mild) N18.2 ; Mixed hyperlipidemia E78.2 ; Major depressive disorder, recurrent, in partial remission F33.41 ; Age-related osteoporosis without current pathological fracture M81.0 ; Malignant neoplasm of upper-outer quadrant of right female breast C50.411 ; Nonalcoholic steatohepatitis (CABRERA) K75.81 ; Hepatic fibrosis, early fibrosis K74.01 ; Prediabetes R73.03 ; Other megaloblastic anemias, 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 ; Nicotine dependence, cigarettes, in remission F17.211 and Vitamin D deficiency, unspecified E55.9 Shani Chapman MD [address] [id number] 05/14/2024 Shani Chapman MD [address] [id number] 07/09/2024 Pari Martinez Encounter for genera l [...] and behavioral disorders Z13.39 Shani Chapman MD [address] [id number] 05/13/2024 Shani Chapman Malignant neoplasm o f [...] Treatment Notes Treatment Clinical Notes Section Notes 08/31/2024 Hypertensive chronic kidney disease with stage 1 through stage 4 chronic kidney disease, or unspecified chronic kidney disease (ICD-10 - I12.9) 11/02/2024 Hypertensive chronic kidney disease with stage 1 through stage 4 chronic kidney disease, or unspecified chronic kidney disease (ICD-10 - I12.9) Improved. Her blood pressure is probably little bit lower at home than it is in the office. She could consider checking her blood pressure with a validated blood pressure cuff to verify adequate control with systolic blood pressure less than 120 as per [employer] trial results 11/09/2024 Nonalcoholic steatohepatitis (CABRERA) (ICD-10 - K75.81) 11/02/2024 Chronic kidney disease, stage 2 (mild) (ICD-10 - N18.2) Stable estimated GFR in the 70s. Continue control of comorbidities of hypertension. 03/02/2025 Hypertensive chronic kidney disease with stage 1 through stage 4 chronic kidney disease, or unspecified chronic kidney disease (ICD-10 - I12.9) Stable based on bloo d pressure readings that she obtained at home and have been entered in the chart as an image. 03/02/2025 Chronic kidney disease, stage 2 (mild) (ICD-10 - N18.2) Stable estimated GFR in the 70s. Continue control of comorbidity of hypertension 05/04/2025 Age-related osteoporosis without current pathological fracture (ICD-10 - M81.0) 11/25/2024 Age-related osteoporosis without current pathological fracture (ICD-10 - M81.0) 08/27/2024 Hypertensive chronic kidney disease with stage 1 through stage 4 chronic kidney disease, or unspecified chronic kidney disease (ICD-10 - I12.9) Fair control at present. Can increase medical therapy to achieve goal of systolic less than 120 as per [employer] trial. 08/27/2024 Chronic kidney disease, stage 2 (mild) (ICD-10 - N18.2) Stable with estimate d GFR in the 70s. Continue control comorbidity of hypertension 07/09/2024 Hypertensive chronic kidney disease with stage [...] will be for annual in 1 year 05/13/2024 Malignant neoplasm of unspecified site of [...] considered low risk for the proposed surgery. 04/19/2025 Hypertensive chronic kidney disease with stage 1 through stage 4 chronic kidney disease, or unspecified chronic kidney disease (ICD-10 - I12.9) 05/13/2024 Hypertensive chronic kidney disease with stage 1 through stage 4 chronic kidney disease, or unspecified chronic kidney disease (ICD-10 - I12.9) Stable with current medical therapy. She is at the level that would be acceptable by the [employer] trial. Continue same. 07/09/2024 Chronic kidney disease, stage 2 (mild) (ICD-10 - N18.2) Stable with estimate d GFR in the upper 70s. Continue control of comorbidity of hypertension 08/27/2024 Mixed hyperlipidemia (ICD-10 - E78.2) Stable and prior lab s reviewed with LDL less than 100. Recheck status and adjust medical therapy based on cardiovascular risk 03/02/2025 Mixed hyperlipidemia (ICD-10 - E78.2) Stable on prior labs as reviewed. Some of her increased ALT may be due to a side effect of statin therapy but at the present time given the finding of early fibrosis this is probably a longstanding issue and not necessarily all medication related. There may have been some alcohol related issues in the past. At this point can continue current medical therapy since the benefit exceeds the risk. 11/02/2024 Mixed hyperlipidemia (ICD-10 - E78.2) Stable on prior labs as reviewed. Her LDL used to be less than 100 and then had increased slightly. Can recheck status. 11/02/2024 Major depressive disorder, recurrent, in partial remission (ICD-10 - F33.41) Stable with periodic follow-up with behavioral health. 03/02/2025 Major depressive disorder, recurrent, in partial remission (ICD-10 - F33.41) Stable with periodic follow-up with behavioral health. Some of her ALT elevation may also be associated with some of her behavioral health medications but at the present time benefit exceeds risk 08/27/2024 Major depressive disorder, recurrent, in partial remission (ICD-10 - F33.41) Stable with periodic follow-up with her behavioral health provider. 07/09/2024 Mixed hyperlipidemia (ICD-10 - E78.2) Will obtain an updated lipid panel to verify by adequate LDL control. Patient to remain on current medication regimen and control of comorbidities of hypertension 05/13/2024 Chronic kidney disease, stage 2 (mild) (ICD-10 - N18.2) Stable with estimate d GFR in the upper 70s. Continue control of comorbidity of hypertension 05/13/2024 Major depressive disorder, recurrent, in partial remission (ICD-10 - F33.41) She has a new behavioral health provider now. Continue chronic medications as per behavioral health 07/09/2024 Major depressive disorder, recurrent, in partial remission (ICD-10 - F33.41) Stable at present time and patient to continue working with her behavioral health prescriber as well as continue current medication regimen as prescribed by this provider 08/27/2024 Age-related osteoporosis without current pathological fracture (ICD-10 - M81.0) Continues on current medical therapy. She had a DEXA scan through oncology that showed improvement. Can switch to bisphosphonate therapy in about 1 year. 11/02/2024 Age-related osteoporosis without current pathological fracture (ICD-10 - M81.0) Continues on current medical therapy. 03/02/2025 Age-related osteoporosis without current pathological fracture (ICD-10 - M81.0) She has discontinued Prolia based on cost issues. Can try to switch to bisphosphonate therapy. She does not wish to have oral bisphosphonate therefore can try to see if intravenous bisphosphonate would be helpful 11/02/2024 Malignant neoplasm of upper-outer quadrant of right female breast (ICD-10 - C50.411) Stable with current medical therapy and periodic follow-up with oncology 03/02/2025 Malignant neoplasm of upper-outer quadrant of right female breast (ICD-10 - C50.411) Stable with current medical therapy and periodic follow-up with oncology 08/27/2024 Malignant neoplasm of upper-outer quadrant of right female breast (ICD-10 - C50.411) She is now on medica l therapy for treatment of this. 07/09/2024 Malignant neoplasm of unspecified site of [...] can be done after her pending surgery. 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 Evaluation for autoimmune etiology has been unremarkable therefore this is probably nonalcoholic steatohepatitis due to a medication. Can we check status and assess risk for fibrosis. If her risk for fibrosis is low then can continue current medical therapy 03/02/2025 Nonalcoholic steatohepatitis (CABRERA) (ICD-10 - K75.81) Her ALT remains elevated. Her elastography shows either normal or mild hepatic fibrosis. Prior evaluation does not show any autoimmune disease and this may be old disease if any is present based on prior issues of elevated weight versus side effect of medications. At this point her risk for progression to cirrhosis is relatively low and no specific therapy may be indicated at this point in time. Recommend total abstinence from alcohol to help minimize rate of progression. 03/02/2025 Hepatic fibrosis, early fibrosis (ICD-10 - K74.01) Her elastography shows a score of F1. Therefore she probably has some degree of longstanding hepatic dysfunction and this is probably due to her prior increased weight or prior alcohol use. At the present time if we can limit her risk of then unlikely that she will ever progress to cirrhosis 11/02/2024 Prediabetes (ICD-10 - R73.03) Stable on prior labs as reviewed. Recheck status 07/09/2024 Nicotine dependence, cigarettes, in remission (ICD-10 - F17.211) Remains in remission 08/27/2024 Vitamin D deficiency, unspecified (ICD-10 - E55.9) Will check level as adjunct evaluation for fall risk and possibly dementia 05/13/2024 Mixed hyperlipidemia (ICD-10 - E78.2) Stable on prior labs reviewed. Her LDL is less than 100. Continue current medical therapy and control of comorbidity of hypertension 05/13/2024 Nicotine dependence, cigarettes, in remission (ICD-10 - F17.211) Remains in remission 07/09/2024 Vitamin D deficiency, unspecified (ICD-10 - E55.9) Will check level as adjunct evaluation for fall risk and possibly dementia 08/27/2024 Elevation of levels of liver transaminase levels (ICD-10 - R74.01) Fair control and prior labs as reviewed. This may be indirectly related to her medications or her history of breast cancer. Can recheck status 03/02/2025 Prediabetes (ICD-10 - R73.03) Stable on prior labs as reviewed. Recheck status and continue encourage exercise. She says she walks 3 miles a day which is admirable. 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 Her MCV is elevated without signs of vitamin deficiency. Can also check immunofixation to evaluate for possible monoclonal gammopathy 08/27/2024 Other abnormal glucose (ICD-10 - R73.09) Glucose was slightly elevated. Recheck status to evaluate for prediabetes 05/13/2024 Vitamin D deficiency, unspecified (ICD-10 - E55.9) Stable on prior labs reviewed. Would continue vitamin D supplementation for goal level of 30+ and if possible 50+ 07/09/2024 Encounter for screening for malignant neoplasm of colon (ICD-10 - Z12.11) Up-to-date on colon cancer screenings. Patient states she was advised by her [place] [facility] attendant that she no longer has to complete [...] 05/13/2024 Encounter for immunization (ICD-10 - Z23) 03/02/2025 Nicotine dependence, cigarettes, in remission (ICD-10 - F17.211) Remains in remission 11/02/2024 Vitamin D deficiency, unspecified (ICD-10 - E55.9) Adequate level on prior labs reviewed. 03/02/2025 Vitamin D deficiency, unspecified (ICD-10 - E55.9) Stable on prior labs as reviewed. Recheck status 07/09/2024 Encounter for screening for osteoporosis (ICD-10 [...] o further interventions warranted at this time 05/13/2024 Other This note was created with voice dictation recognition software and may contain errors of grammar and syntax. Also labs were reviewed with patient. 07/09/2024 Other This note was created with voice dictation recognition software and may contain errors of grammar and syntax. Also labs were reviewed with patient. 08/27/2024 Other This note was created with voice dictation recognition software and may contain errors of grammar and syntax. Also labs were reviewed with patient. 11/02/2024 Other This note was created with voice dictation recognition software and may contain errors of grammar and syntax. Also labs were reviewed with patient. 03/02/2025 Other This note was created with voice dictation recognition software and may contain errors of grammar and syntax. Also labs were reviewed with patient. Plan Of Treatment Pending Test Test Name Order Date X ray : Shoulder, left 09/27/2016 COMPREHENSIVE METABOLIC PANEL 09/03/2023 COMPREHENSIVE METABOLIC PANEL 09/02/2023 CBC 05/28/2016 CBC 11/29/2016 CBC 07/03/2017 CBC 10/03/2020 COMPREHENSIVE METABOLIC PANEL 10/03/2020 COMPREHENSIVE METABOLIC PANEL 07/03/2017 COMPREHENSIVE METABOLIC PANEL 11/29/2016 COMPREHENSIVE METABOLIC PANEL 05/28/2016 FERRITIN 08/28/2021 HAPTOGLOBIN 08/28/2021 HEPATITIS C VIRUS SCREEN 08/28/2021 LACTATE DEHYDROGENASE 08/28/2021 LIPID PROFILE 07/03/2017 LIPID PROFILE 11/29/2016 LIPID PROFILE 05/28/2016 LIPID PROFILE 10/03/2020 INTACT PTH 05/28/2016 RETICULOCYTE COUNT 08/28/2021 TOTAL IRON BINDING CAPACITY 08/28/2021 URINALYSIS 05/28/2016 URINALYSIS 11/29/2016 URINALYSIS 07/03/2017 URINALYSIS 10/03/2020 URINALYSIS 05/01/2022 URINALYSIS 07/10/2021 MICROALB/CREAT RATIO, RANDOM 07/10/2021 MICROALB/CREAT RATIO, RANDOM 10/03/2020 MICROALB/CREAT RATIO, RANDOM 05/28/2016 B12 AND FOLATE PROFILE 08/28/2021 VITAMIN D, 25-HYDROXY 04/05/2021 VITAMIN D, 25-HYDROXY 10/03/2020 VITAMIN D, 25-HYDROXY 05/01/2022 VITAMIN D, 25-HYDROXY 03/31/2020 VITAMIN D, 25-HYDROXY 07/14/2018 VITAMIN D, 25-HYDROXY 07/03/2017 VITAMIN D, 25-HYDROXY 11/29/2016 VITAMIN D, 25-HYDROXY 05/28/2016 CR Chest Routine 2 Views 09/05/2017 CT Low Dose Lung Screening 07/09/2024 COLOGUARD 05/01/2022 Urinalysis, Complete-[id number] 11/02/2024 Urinalysis, Complete-[id number] 07/09/2024 CBC With Differential/Platelet-[id number] Vitamin D, 73-Rynpngm-[id number] 07/09/2024 Albumin/Creatinine Ratio,Urine-[id number] Comp. Metabolic Panel [id number] 2023 Comp. Metabolic Panel [id number] 2024 LP+Non-HDL Cholesterol-[id number] 07/09/2024 HCV Antibody-[id number] 07/09/2024 Future Test Test Name Order Date MITOCHONDRIAL ANTIBODIES 04/24/2020 ANTI-NUCLEAR ANTIBODY 04/24/2020 COMPREHENSIVE METABOLIC PANEL 04/24/2020 ESR 04/24/2020 IMMUNOFIX SERUM 04/24/2020 SMOOTH MUSCLE AB W TITER 04/24/2020 Next Appt Details Provider Name:Shani Chapman , 08/02/2025 09:00:00 AM, [address] [place] [address], [place] [address], [place], [place], [phone], Insurance Providers Payer Name Payer Address Payer Phone Subscriber Number Group Number Insured Name Patient Relationship to Insured Coverage Start Date Coverage End Date [employer] [address] [address] [place] [phone] [id number] Aminta Swain Self - patient is the insured Medications Administered Medication Instructions Date of Administration Dosage Notes Prolia 09/12/2023 60 mg Prolia 01/30/2023 60 mg Prolia 07/02/2022 60 mg mfd [...]
== END 2025-05-12 12:17 | disposition home or self-care (01) ==
LOC: HO.MAMMO 12:16
PROVIDERS: Visit Provider Surgery
DX: D05.11 Intraductal carcinoma in situ of right breast (principal)
CPT/HCPCS: 76642; 77062; 77066

== ENCOUNTER → 2025-05-12 12:30 | Outpatient (BNV) | payer MEDICARE, SELFPAY | PROVIDERS: Visit Provider Internal Medicine | DX: Z85.3 Personal history of malignant neoplasm of breast (principal) | CPT/HCPCS: 76642; 77066; G0279 ==

== ENCOUNTER 2025-08-05 10:00 | Outpatient (AMB) | payer MEDICARE, SELFPAY ==
--- NOTE | 2025-08-05 10:11 | MHC.OFFVIS ---
Vital Signs 08/05/25 10:13 Height 5 ft 5 in Weight 129 lb 4 oz BMI 21.5 BP 184/79 H Blood Pressure Location Lt brachial Position Sitting Pulse 79 Intake Visit Reasons: 6 mths Rt brst Intake Note: Patient is seen in office for 6 month follow up visit, breast exam. Pt c/o: denies any concerns us/mm:05/12/25 Back Tender Cylinder Required: No Accompanied by: Spouse Allergies penicillin G Allergy (Mild, Verified 08/05/25 10:12) Rash HPI HPI 6 mths Rt brst: Details: 79-year-old female patient presenting for breast follow up. She initially presented to the office after bilateral mammogram on 03/05/2024 followed by diagnostic right mammogram and ultrasound on 03/25/2024 revealed a 0.6 cm round isodense nodule with partial obscured borders in the superior aspect of the right breast approximately 9 cm from the nipple, 11 o'clock position, felt to be suspicious. 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 She denies a previous history of breast problems or breast surgery. She denied any breast pain, palpable lump, nipple discharge, skin changes or enlarged lymph nodes at that time. She is 0. Her family history is negative for breast cancer. She underwent right breast lumpectomy with localizer and right axillary sentinel node biopsy on 06/10/2024. Pathology confirmed invasive ductal carcinoma with DCIS, negative margins, 0 of 6 sentinel lymph nodes with metastatic disease, ER/KY positive, HER2 Chelsy negative, Ki-67 high (pT1b pN0). She was evaluated by Dr. Bhakta and the decision made to avoid radiation therapy given her age. She was started on anastrozole which she continues. She has not followed up with Oncology since last year. She underwent her annual mammogram and subsequent US on 05/12/25 which showed left breast negative; right breast with postoperative changes and lymph node in the upper outer breast slightly increased from prior mammograms appears benign and may be slightly prominent on ultrasound, BI-RADS 3 -probably benign finding(s). Six-month follow-up mammogram was recommended. She denies any new breast changes or concerns, palpable lumps. When asked about new medical changes she reports history of rectal prolapse s/p sigmoid resection years ago. She followed up with her PCP a few weeks ago and noted she had been constipated and was started on a new medicine which name she cannot remember and developed severe, crampy abdominal pain followed by profuse diarrhea. She reports calling EMS however she was not brought to the hospital for evaluation. She stopped taking that medication. She reports her symptoms have since resolved and she is having normal bowel movements. [facility] Medical History Basal cell carcinoma Arthritis HTN (hypertension) Osteoporosis Closed fracture of thoracic vertebra Chronic renal insufficiency Depression Hammer toe of second toe of right foot Patella fracture Bipolar 1 disorder Surgical History Status post right breast lumpectomy (06/10/24) H/O colonoscopy Hx of vertebroplasty History of rectal surgery Hx of foot surgery History of amputation of toe Hx of knee surgery H/O: hysterectomy Family History Father Multiple myeloma Social History Household Members: Spouse Are you a primary child care associate teacher to a significant other at home: No Do you presently have visiting nurse or other home services: No Alcohol intake: current Alcohol type: wine Patient Tobacco Use Status: Former Tobacco user Tobacco use type: Cigarette Years Smoked: 57 Substance Use Type: Marijuana service: No Current occupational status: retired Review of Systems Const Denies chills and Denies fever(s) ENT Denies dizziness Card Denies chest pain and Denies dyspnea Resp Denies dyspnea GI Reports as per HPI, Denies hematochezia, Denies nausea and Denies vomiting Denies nipple discharge Skin/Breast Reports as per HPI, Denies breast swelling, Denies breast skin changes, Denies breast pain, Denies breast mass, Denies change in breast shape, Denies nipple discharge and Denies rash Neuro Denies dizziness Physical Exam Vital Signs: Last Vital Signs Pulse 79 08/05/25 10:13 BP 184/79 H 08/05/25 10:13 BMI result Body Mass Index 21.5 Const General: comfortable, no acute distress and alert Orientation/consciousness: patient oriented x3 Chest Other: Left breast- no skin change, no nipple retraction, no nipple discharge, no palpable mass, no enlarged lymph nodes Right breast- well healed upper outer quadrant incision, no other skin changes, no nipple retraction, no nipple discharge, no palpable mass, no enlarged palpable lymph nodes Resp Effort & Inspection: normal respiratory effort and able to speak in complete sentences Skin General skin exam: no rashes or lesions noted Neuro General: patient oriented x3 and moves all extremities Assessment & Plan Assessment & Plan (1) Invasive ductal carcinoma of right breast: Code(s): C50.911 - Malignant neoplasm of unspecified site of right female breast Category: Medical Plan 79 year old female patient status post right breast lumpectomy with sentinel node biopsy on 06/10/2024 for invasive ductal carcinoma with DCIS. She is on anastrozole. Examination today reveals no concerning findings, no palpable lymph nodes correlating to the imaging findings. She was reminded about her 6 month follow-up mammogram for which the referral has already been made and is scheduled for 11/09/25. Recommended follow up examination in the office in approximately 6 months or sooner if she develops any new concerns. She has not followed up with Oncology since 07/19 and was instructed to make a follow up appointment. Patient and comfortable with plan. Coding Level of Care Code Est Pt Level 3 (95604) Diagnoses Invasive ductal carcinoma of right breast C50.911
[2025-08-05 10:13] VITALS: BP 184/79; PULSE 79; BMI 21.5
== END 2025-08-05 10:38 | disposition home or self-care (01) ==
LOC: HO.HGS 10:00
PROVIDERS: PCP Internal Medicine; Visit Provider Physician Assistant Surgical
DX: C50.911 Malignant neoplasm of unspecified site of right female breast (principal)
CPT/HCPCS: 99213

== ENCOUNTER → 2025-08-05 10:00 | Outpatient (BNVA) | payer MEDICARE, SELFPAY | PROVIDERS: PCP Internal Medicine; Visit Provider Physician Assistant Surgical | DX: D05.11 Intraductal carcinoma in situ of right breast (principal) | CPT/HCPCS: 99212 ==